=== PATIENT | female | born 1945 | race Caucasian/White ===

== ENCOUNTER → 2016-07-15 | Outpatient (CLI) | payer OTHER ==
[~2016-07-15] MED LIST: CITALOPRAM PO; DICL-201 PO; LEVO175T25 PO; LOVA20TA4 PO; [UNRECOGNIZED DRUG - CODE] PO
== END | disposition home or self-care (01) ==
LOC: C.LABPBG 15:30
PROVIDERS: ATTEND Family Medicine
DX: E03.9 Hypothyroidism, unspecified (principal)

== ENCOUNTER 2016-10-07 22:37 | Emergency (ER) | payer OTHER ==
[~2016-10-07] VITALS: Ht 172.7 cm; Wt 108.3 kg
[2016-10-07 22:45] VITALS: TEMP 36.9; Ht 172.7 cm; Wt 108.3 kg
--- NOTE | 2016-10-07 22:59 | EMERGENCY ROOM VISIT NOTE ---
History Report prepared by Margot: Ji Bush Under the Supervision of: Dr. Carlos Sanchez D.O. 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 She rates her pain a 6/10 in severity. The patient was walking outside when she began to go down a hill. She then could not stop herself from descending the hill. She ran into a flag pole at the bottom and then a deck. She did not lose consciousness. She is currently on Aspirin 81 mg PO daily. She denies any neck pain or dental pain. She currently has facial pain. She does not know when her last Tetanus shot was. 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 A total of ten systems were reviewed and were otherwise negative. Past Medical & Surgical Medical Problems: (1) Hypothyroidism Family History Omitted secondary to age. Social History Smoking Status: Never Smoker Smokeless Tobacco Use: No Drug Use: none Occupation Status: retired Current/Historical Medications Scheduled Diclofenac (Voltaren), 75 MG PO BID Levothyroxine (Levothroid), 0.175 MG PO DAILY Lovastatin (Mevacor), 20 MG PO DHS Triazolam (Halcion *), 0.25 MG PO HS [Citalopram], 40 MG PO ONE IN AM, 1/2 IN PM Allergies Coded Allergies: No Known Allergies (Verified Allergy, Mild, 10/03/07) Physical Exam Vital Signs Date Time Temp Pulse Resp B/P (MAP) Pulse Ox O2 Delivery O2 Flow Rate FiO2 10/08/16 01:15 98 Room Air 10/08/16 01:15 69 18 148/103 100 Room Air 10/08/16 01:02 71 16 198/91 96 Room Air 10/07/16 22:45 36.9 90 20 175/90 96 Room Air Physical Exam GENERAL: Awake, alert, well-appearing, in no distress HENT: Normocephalic. Oropharynx unremarkable. There is a 2 cm laceration on the right maxillary area. There is ecchymosis and obvious contusion with tenderness to the nasal bridge. There is a temporoparietal laceration that is less than 2 cm. EYES: Normal conjunctiva. Sclera non-icteric. NECK: Supple. No nuchal rigidity. FROM. No JVD. No tenderness. RESPIRATORY: Clear to auscultation. CARDIAC: Regular rate, normal rhythm. Extremities warm and well perfused. Pulses equal. ABDOMEN: Soft, non-distended. No tenderness to palpation. No rebound or guarding. No masses. RECTAL: Deferred. MUSCULOSKELETAL: Chest examination reveals no tenderness. The back is symmetrical on inspection without obvious abnormality. There is no CVA tenderness to palpation. No joint edema. LOWER EXTREMITIES: Calves are equal size bilaterally and non-tender. No edema. No discoloration. NEURO: Normal sensorium. No sensory or motor deficits noted. GCS 15. SKIN: No rash or jaundice noted. Medical Decision & Procedures ER Provider Diagnostic Interpretation: X ray results as stated below per my interpretation and radiologist interpretation. Other radiology results as stated below per my review and radiologist interpretation CT HEAD: Small subdural hemorrhage along the falx measuring 3 mm in thickness. No mass effect or midline shift. CT FACIAL: Fracture of the nasal bone with probable nasal septum with associated soft tissue swelling. CT C SPINE: Degenerative changes without definite acute fracture. Age-indeterminate slight irregularity of the anterior C7 superior endplate. Radiologist: Manjula Brunson M.D. Laboratory Results 10/08/16 01:09 Red Blood Count 4.91, Mean Corpuscular Volume 90.0, Mean Corpuscular Hemoglobin 28.7, Mean Corpuscular Hemoglobin Concent 31.9, Mean Platelet Volume 8.3, Neutrophils (%) (Auto) 82.6, Lymphocytes (%) (Auto) 11.4, Monocytes (%) (Auto) 4.6, Eosinophils (%) (Auto) 0.9, Basophils (%) (Auto) 0.2, Neutrophils # (Auto) 13.23, Lymphocytes # (Auto) 1.82, Monocytes # (Auto) 0.74, Eosinophils # (Auto) 0.14, Basophils # (Auto) 0.04 Test 10/08/16 01:09 White Blood Count 16.02 K/uL (4.8-10.8) Red Blood Count 4.91 M/uL (4.2-5.4) Hemoglobin 14.1 g/dL (12.0-16.0) Hematocrit 44.2 % (37-47) Mean Corpuscular Volume 90.0 fL (80-100) Mean Corpuscular Hemoglobin 28.7 pg (25-34) Mean Corpuscular Hemoglobin Concent 31.9 g/dl (32-36) Platelet Count 331 K/uL (130-400) Mean Platelet Volume 8.3 fL (7.4-10.4) Neutrophils (%) (Auto) 82.6 % Lymphocytes (%) (Auto) 11.4 % Monocytes (%) (Auto) 4.6 % Eosinophils (%) (Auto) 0.9 % Basophils (%) (Auto) 0.2 % Neutrophils # (Auto) 13.23 K/uL (1.4-6.5) Lymphocytes # (Auto) 1.82 K/uL (1.2-3.4) Monocytes # (Auto) 0.74 K/uL (0.11-0.59) Eosinophils # (Auto) 0.14 K/uL (0-0.5) Basophils # (Auto) 0.04 K/uL (0-0.2) RDW Standard Deviation 44.7 fL (36.4-46.3) RDW Coefficient of Variation 13.7 % (11.5-14.5) Immature Granulocyte % (Auto) 0.3 % Immature Granulocyte # (Auto) 0.05 K/uL (0.00-0.02) Laboratory results reviewed by me Medications Administered Medications (Trade) Dose Ordered Sig/Brayan Route Start Time Stop Time Status Last Admin Dose Admin Diphtheria/ Pertussis/Tetanus Vacc (Adacel Inj) 0.5 ml ONCE ONCE IM. 10/07/16 23:00 10/07/16 23:01 DC 10/07/16 23:10 0.5 ML ECG Indication: other (Trauma) Rate (beats per minute): 71 Rhythm: sinus rhythm Findings: 1st degree AV block, nonspecific-ST abn (Lateral), other (No ST depressions) ED Course 8: The patient was evaluated in room A4B. A complete history and physical exam was performed. 2300: Ordered Adacel Inj 0.5 ml IM 0106: I spoke with Dr. Ashraf of [facility] at this time. They have accepted the patient for further evaluation and care. The patient will be transferred to their facility. Medical Decision Differential diagnoses include but are not limited to; closed head injury, nasal bone facture, lacerations, and cervical spine injury. Medication Reconciliation: I attest that I have personally reviewed the patient' s current medication list. Blood pressure screening: Patient was found to have normal blood pressure on screening and does not require follow-up Patient on reexamination at 1:20 AM is nonfocal neurologically has a GCS of 15. I discussed the evaluation with the patient at bedside and her family. Patient will be transferred to [facility] for further evaluation due to subdural hemorrhage as well as nasal bone fracture. The case was discussed with Dr Ashraf at [facility]'s emergency department for transfer and has been accepted in transfer at 125am. Consults Time Called: 0100 Consulting Physician: Dr. Ashraf - [facility] ER Returned Call: 010 The patient will be transferred to their facility for further management by Dr. Ashraf. Impression Primary Impression: Subdural hemorrhage Additional Impressions: Nasal fracture Sprain of ligaments of cervical spine Superficial laceration of face Scalp laceration Critical Care I have personally spent greater than 35 minutes of critical care time in the direct management of this patient. This includes bedside care, interpretation of diagnostic studies, and testing, discussion with consultants, patient, and family members, and other required patient management activities. This 35 minutes is in excess of all separately billable procedures. Scribe Attestation The scribe's documentation has been prepared under my direction and personally reviewed by me in its entirety. I confirm that the note above accurately reflects all work, treatment, procedures, and medical decision making performed by me. Departure Information Dispostion Transfer Acute Care Facility Referrals Mitzi Camacho MD (PCP) Patient Instructions My [facility] Problem Qualifiers
[2016-10-07] MEDS ORDERED: DIPHTHERIA/TETANUS/PERTUSSIS 0.5 ML SYR/VIAL IM. ONE (23:00)
[2016-10-08 01:15] VITALS: O2SAT 98
[2016-10-08] MEDS ORDERED: MoRPHine SULFATE 4 MG/ML 1 ML CARP\\VIAL IV STA (01:17)
[2016-10-08] MEDS ORDERED: ONDANSETRON INJ 2 MG/ML 2 ML VIAL IV STA (01:17)
[2016-10-08 01:20] LABS: BASO % 0.2 %; BASO ABS # 0.04 K/uL (0-0.2); COMPLETE YES; EOS % 0.9 %; HEMATOCRIT 44.2 % (37-47); IG% 0.3 %; LYMPH % 11.4 %; LYMPH ABS # 1.82 K/uL (1.2-3.4); MEAN CORPUSCULAR HEMOGLOBIN 28.7 pg (25-34); MEAN CORPUSCULAR HGB CONC 31.9 g/dl (32-36); MEAN PLATELET VOLUME 8.3 fL (7.4-10.4); MONO % 4.6 %; NEUT % 82.6 %; PLATELET COUNT 331 K/uL (130-400); RED BLOOD COUNT 4.91 M/uL (4.2-5.4); WHITE BLOOD COUNT 16.02 K/uL (4.8-10.8)
[2016-10-08 01:29] LABS: INR 0.9 (0.9-1.1); PARTIAL THROMBOPLASTIN RATIO 0.9; PROTHROMBIN TIME (PATIENT) 10.1 SECONDS (9.0-12.0)
[2016-10-08 01:37] LABS: BUN/CREATININE RATIO 14.2 (10-20); CALCIUM 9.1 mg/dl (8.5-10.1); CREATININE 0.81 mg/dl (0.60-1.20); MAGNESIUM 1.8 mg/dl (1.8-2.4)
[2016-10-08 01:48] LABS: THYROID STIMULATING HORMONE 1.34 uIu/ml (0.300-4.500)
[2016-10-08 02:28] VITALS: BP 159/94; PULSE 72; O2SAT 97
--- NOTE | 2016-10-08 06:49 | DIAGNOSTIC IMAGING REPORT ---
CT OF THE HEAD WITHOUT CONTRAST CLINICAL HISTORY: Fall. Posterior head laceration. COMPARISON STUDY: No previous studies for comparison. CT DOSE: 1113.73 mGy.cm TECHNIQUE: Helical axial images of the head were obtained without IV contrast. Automated exposure control was utilized for the study. FINDINGS: Minimal hyperdensity along the falx suggest a tiny subdural hematoma which measures 3 mm in thickness. There is no mass effect. Ventricular system is normal. Basilar cisterns are patent. There are no extra-axial collections. Nasal bone fractures are better depicted on the maxillofacial CT. There is no calvarial fracture. IMPRESSION: 1. Trace acute subdural hemorrhage along the falx. 2. No acute calvarial fracture. 3. Bilateral nasal bone fractures which are better depicted on the maxillofacial CT. Electronically signed by: Bashir Macias M.D. 10/08/2016 6:47 AM Dictated Date/Time: 10/08/2016 6:44 AM
--- NOTE | 2016-10-08 06:52 | DIAGNOSTIC IMAGING REPORT ---
MAXILLOFACIAL CT WITHOUT CONTRAST CLINICAL HISTORY: Fall. Nose laceration. COMPARISON STUDY: None. TECHNIQUE: A maxillofacial CT was performed without IV contrast. Coronal and sagittal reformats were viewed. FINDINGS: There are acute mildly displaced comminuted bilateral nasal bone fractures. Minimally displaced fracture of the bony nasal septum is noted. Alignment of the temporomandibular joints is anatomic. Nasal soft tissue swelling and gas is present There is no retrobulbar hematoma. No additional facial fractures are identified. There are postsurgical findings within the sinuses. IMPRESSION: 1. Acute comminuted, mildly displaced bilateral nasal bone fractures and minimally displaced fracture of the nasal septum. 2. Nasal soft tissue swelling and soft tissue gas. Electronically signed by: Bashir Macias M.D. 10/08/2016 6:50 AM Dictated Date/Time: 10/08/2016 6:44 AM
--- NOTE | 2016-10-08 06:55 | DIAGNOSTIC IMAGING REPORT ---
CT OF THE CERVICAL SPINE WITHOUT CONTRAST CLINICAL HISTORY: Neck pain following fall. COMPARISON STUDY: No previous studies for comparison. TECHNIQUE: Helical axial images of the cervical spine were obtained without IV contrast. Sagittal and coronal reconstructions were viewed. FINDINGS: Alignment of the cervical spine is anatomic. No definite acute fracture is identified. There is slight irregularity with slight loss of height of the superior endplate of C7. This is age indeterminate. Note subluxation is present. There is moderate multilevel facet arthrosis and degenerative disc disease. IMPRESSION: 1. No definite acute cervical spine fracture. 2. Slight age indeterminate irregularity with loss of height of the superior endplate of C7. Electronically signed by: Bashir Macias M.D. 10/08/2016 6:54 AM Dictated Date/Time: 10/08/2016 6:50 AM
== END 2016-10-08 02:29 | disposition short-term general hospital (02) ==
LOC: C.EDB 22:38 → C.EDA 10-08 02:29
DX: S06.5X0A Traumatic subdural hemorrhage without loss of consciousness, initial encounter (principal); S02.2XXA Fracture of nasal bones, initial encounter for closed fracture; S13.9XXA Sprain of joints and ligaments of unspecified parts of neck, initial encounter; S01.01XA Laceration without foreign body of scalp, initial encounter; S01.81XA Laceration without foreign body of other part of head, initial encounter; W22.09XA Striking against other stationary object, initial encounter; Y93.01 Activity, walking, marching and hiking; Y99.8 Other external cause status; Z23 Encounter for immunization; E03.9 Hypothyroidism, unspecified; Z79.82 Long term (current) use of aspirin; Z79.899 Other long term (current) drug therapy

== ENCOUNTER → 2016-10-28 | Outpatient (CLI) | payer OTHER ==
--- NOTE | 2016-10-28 12:00 | DIAGNOSTIC IMAGING REPORT ---
HEAD CT NONCONTRAST CT DOSE: 690.05 mGycm HISTORY: S06.5X9A Subdural hemorrhage, [id number] Subdural hematoma TECHNIQUE: Multiaxial CT images of the head were performed without the use of intravenous contrast. Automated exposure control was utilized for this study. Comparison: Head CT 10/07/2016. Findings: Healing nasal bone fractures. The paranasal sinuses and mastoid air cells are clear. Trace subdural hemorrhage at the falx has almost completely resolved. This measures 1 mm in thickness. No additional sites of intracranial hemorrhage identified. There is no mass, midline shift or acute infarct. Impression: Near complete resolution of the trace subdural hemorrhage at the falx. Electronically signed by: Noel Ward M.D. 10/28/2016 11:59 AM Dictated Date/Time: 10/28/2016 11:55 AM
== END | disposition home or self-care (01) ==
LOC: C.CTS 11:44
PROVIDERS: ATTEND Psychiatry & Neurology Neurology
DX: S06.5X9A Traumatic subdural hemorrhage with loss of consciousness of unspecified duration, initial encounter (principal); X58.XXXA Exposure to other specified factors, initial encounter

== ENCOUNTER → 2016-11-15 | Outpatient (CLI) | payer OTHER ==
[2016-11-15 18:18] LABS: CHOLESTEROL/HDL RATIO 3.3; THYROID STIMULATING HORMONE 1.02 uIu/ml (0.300-4.500)
[2016-11-16 06:06] LABS: ESTIMATED AVERAGE GLUCOSE 126 mg/dl; HA1C FLAG Normal (Normal)
--- NOTE | 2016-11-30 11:07 | CODING QUERY MEDICAL NECESSITY ---
SUPPORTING DIAGNOSIS NEEDED [employer] [facility], A supporting diagnosis is required for the test/procedure performed on this patient in order for us to be reimbursed by the patient's insurance. Please provide a supporting diagnosis for the following test/procedure listed below next to the test name along with your signature. *If there is no additional diagnosis for this patient that would support the following test/procedure please document that below next to the test/procedure. Test(s)/Procedure(s) that require a supporting diagnosis: * [id number] GLYCATED HEMOGLOBIN DIAGNOSIS: DATE OF SERVICE: 11/15/16 Provider Signature: Date: Thank you [facility] Information Management Once completed, please kindly fax back to [phone] For questions please call [phone]
== END | disposition home or self-care (01) ==
LOC: C.LABPBG 14:58
PROVIDERS: ATTEND Family Medicine
DX: E78.5 Hyperlipidemia, unspecified (principal); E03.9 Hypothyroidism, unspecified; R42 Dizziness and giddiness; Y92.099 Unspecified place in other non-institutional residence as the place of occurrence of the external cause

== ENCOUNTER → 2017-01-09 | Outpatient (CLI) | payer OTHER ==
--- NOTE | 2017-01-09 13:43 | DIAGNOSTIC IMAGING REPORT ---
HEAD WITHOUT CONTRAST (CT) CT DOSE: 729.78 mGycm HISTORY: I62.00 Subdural hematoma TECHNIQUE: Multiaxial CT images of the head were performed without the use of intravenous contrast. A dose lowering technique was utilized adhering to the principles of ALARA. Comparison: 10/28/2016 Findings: The paranasal sinuses and mastoid air cells are clear. Improved exam. No significant residual subdural hematoma. Calcifications the interhemispheric fissure chronic. Mild chronic small vessel change of aging. Impression: Study is now negative for acute intracranial abnormality. No significant residual of the previously described subdural hematoma The above report was generated using voice recognition software. It may contain grammatical, syntax or spelling errors. Electronically signed by: Eamon Degroot M.D. 01/09/2017 1:42 PM Dictated Date/Time: 01/09/2017 1:32 PM
== END | disposition home or self-care (01) ==
LOC: C.CTS 13:12
PROVIDERS: ATTEND Psychiatry & Neurology Neurology
DX: I62.00 Nontraumatic subdural hemorrhage, unspecified (principal)

== ENCOUNTER → 2017-12-11 | Outpatient (CLI) | payer OTHER ==
[~2017-12-11] MED LIST changes: +ABL/15 PO; +DULO60CA44 PO; +FESO8TAB PO; +LEVO150T9 PO; +MELO-84 PO; +METO25TA3 PO; +NYST1POW7 TOP; +OMEP40CA41 PO; +OXYC7.5T65 PO; +PHEN-775 PO; +TRIA0.25 PO; +TROS1CAP2 PO
== END | disposition home or self-care (01) ==
LOC: C.LABSPEC 17:09
PROVIDERS: ATTEND Neuromusculoskeletal Medicine & OMM
DX: R39.9 Unspecified symptoms and signs involving the genitourinary system (principal)

== ENCOUNTER → 2017-12-14 | Outpatient (CLI) | payer OTHER ==
[~2017-12-14] MED LIST changes: +KFL500 PO
[2017-12-14 16:59] LABS: BASO % 0.5 %; BASO ABS # 0.04 K/uL (0-0.2); EOS ABS # 0.09 K/uL (0-0.5); HEMATOCRIT 43.2 % (37-47); IG# 0.03 K/uL (0.00-0.02); LYMPH % 29.6 %; LYMPH ABS # 2.59 K/uL (1.2-3.4); MEAN CELL VOLUME 94.9 fL (80-100); MEAN CORPUSCULAR HEMOGLOBIN 30.8 pg (25-34); MEAN CORPUSCULAR HGB CONC 32.4 g/dl (32-36); MEAN PLATELET VOLUME 8.7 fL (7.4-10.4); MONO % 6.2 %; MONO ABS # 0.54 K/uL (0.11-0.59); NEUT % 62.4 %; NEUT ABS # 5.45 K/uL (1.4-6.5); PLATELET COUNT 323 K/uL (130-400); RED CELL DISTRIBUTION WIDTH CV 14.5 % (11.5-14.5); RED CELL DISTRIBUTION WIDTH SD 50.2 fL (36.4-46.3); WHITE BLOOD COUNT 8.74 K/uL (4.8-10.8)
[2017-12-14 17:30] LABS: ALT/SGPT 12 U/L (12-78); BLOOD UREA NITROGEN 13 mg/dl (7-18); CALCIUM 9.2 mg/dl (8.5-10.1); CARBON DIOXIDE 28 mmol/L (21-32); CHOLESTEROL 128 mg/dl (0-200); CREATININE 0.87 mg/dl (0.60-1.20); GLUCOSE 116 mg/dl (70-99); LDL CHOLESTEROL CALCULATED 34 mg/dl; POTASSIUM 4.4 mmol/L (3.5-5.1); SODIUM 135 mmol/L (136-145)
== END | disposition home or self-care (01) ==
LOC: C.LABPBG 15:55
PROVIDERS: ATTEND Family Medicine
DX: E03.9 Hypothyroidism, unspecified (principal); I10 Essential (primary) hypertension; E78.5 Hyperlipidemia, unspecified

== ENCOUNTER 2017-12-18 21:00 | Inpatient (IN) | payer OTHER ==
[~2017-12-18] VITALS: Ht 172.7 cm; Wt 94.2 kg
[~2017-12-18 21:00] MED LIST changes: -ABL/15 PO; -DULO60CA44 PO; -FESO8TAB PO; -KFL500 PO; -LEVO150T9 PO; -MELO-84 PO; -METO25TA3 PO; -NYST1POW7 TOP; -OMEP40CA41 PO; -OXYC7.5T65 PO; -PHEN-775 PO; -TRIA0.25 PO; -TROS1CAP2 PO
[2017-12-18] MEDS ORDERED: ACETAMINOPHEN 500 MG TAB PO STA (21:19)
--- NOTE | 2017-12-18 21:22 | EMERGENCY ROOM VISIT NOTE ---
History Report prepared by Margot: Libby Harden Under the Supervision of: Dr. Percy Gonzalez M.D. First contact with patient: 21:11 Chief Complaint: WEAKNESS Stated Complaint: WEAK CANT STAND History of Present Illness The patient is a 72 year old female who presents to the Emergency Room with complaints of constant L leg weakness beginning today. She notes she fell 4 times today, and hit her head on the tub. Her son states she has cuts to her back and neck. He reports the patient seems to have had slurred speech all day. The patient notes pain in the back of her head as well as her back, hips, and knees. She denies pain in her chest, abdomen, or neck. The son notes he had to help the patient to her feet after the last two falls. The patient notes she felt fine yesterday. She reports she did not eat today. The patient sees Dr. Ann as her PCP. Her son notes the patient had a recent UTI. Source of History: patient Onset: today Position: leg (left) Quality: other (weakness) Timing: constant Associated Symptoms: + headache (back of head), No neck pain, No chest pain , No abdominal pain Note: Associated symptoms: slurred speech, knee pain, hip pain Review of Systems See HPI for pertinent positives and negatives. A total of ten systems were reviewed and were otherwise negative. Past Medical & Surgical Medical Problems: (1) Hypothyroidism Social History Smoking Status: Never Smoker Drug Use: none Marital Status: Occupation Status: retired Current/Historical Medications Scheduled Aripiprazole (Abilify), 15 MG PO DAILY Duloxetine Hcl (Cymbalta), 60 MG PO BID Fesoterodine Fumarate (Toviaz), 1 TAB PO DAILY Levothyroxine Sodium (Levothyroxine Sodium), 1 TAB PO DAILY Lovastatin (Mevacor), 20 MG PO HS Meloxicam (Mobic), 15 MG PO DAILY Metoprolol Succ (Toprol Xl) (Toprol-Xl), 25 MG PO HS Nystatin (Topical) (Nystatin), 1 APPLN TOP TID Omeprazole (Prilosec), 40 MG PO DAILY Oxycodone/Acetaminophen 7.5MG/325MG (Percocet 7.5MG/325MG), 1 TAB PO TID Triazolam (Halcion), 2 TAB PO HS Trospium Chloride (Trospium Chloride Er), 60 MG PO QAM Scheduled PRN Phenazopyridine Hcl (Pyridium), 200 MG PO TID PRN for Pain Allergies Coded Allergies: No Known Allergies (Verified , 12/19/17) Physical Exam Vital Signs Date Time Temp Pulse Resp B/P (MAP) Pulse Ox O2 Delivery O2 Flow Rate FiO2 12/19/17 00:27 77 20 145/68 93 Room Air 12/18/17 23:17 77 18 135/95 95 Room Air 12/18/17 23:16 89 20 135/95 96 Room Air 12/18/17 23:10 78 19 123/111 94 12/18/17 22:20 81 24 12/18/17 22:16 83 12/18/17 22:11 127/67 12/18/17 22:10 93 Room Air 12/18/17 22:10 93 Room Air 12/18/17 21:06 36.4 67 16 127/77 98 Room Air Physical Exam GENERAL: Awake, alert, well-appearing, in no distress HENT: Normocephalic, atraumatic. Oropharynx unremarkable. EYES: Normal conjunctiva. Sclera non-icteric. NECK: Supple. No nuchal rigidity. RESPIRATORY: Clear to auscultation. No wheezes. Normal respiratory effort. CARDIAC: Normal rate. Normal rhythm. Extremities warm and well perfused. GI: Soft, non-distended. No tenderness to palpation. No rebound or guarding. No masses. RECTAL: Deferred. MUSCULOSKELETAL: Atraumatic. Chest examination reveals no tenderness. There is no CVA tenderness to palpation. LOWER EXTREMITIES: Calves are equal size bilaterally and non-tender. No edema. Mild tenderness to bilateral knees & hips NEURO: Normal sensorium. No sensory or motor deficits noted. No facial droop. SKIN: Warm and dry. No rash or jaundice noted. 15cm superficial abrasion on upper back. 2x5cm ecchymosis of L hip Medical Decision & Procedures ER Provider Diagnostic Interpretation: Radiology results as stated below per my review and radiologist interpretation: THORACIC SPINE WITHOUT CLINICAL HISTORY: fall COMPARISON STUDY: No previous studies for comparison. TECHNIQUE: Axial images of the thoracic spine were obtained without IV contrast. Sagittal and coronal reconstructions were viewed. FINDINGS: Mild loss of height of the inferior endplate of T12 is likely chronic. No acute thoracic spine fracture is identified. There is mild multilevel disc space narrowing with moderate anterior osteophytosis. The chest CT will be reported separately. IMPRESSION: 1. No acute thoracic spine fracture or subluxation. 2. Mild loss of height of the inferior endplate of T12 which is likely old. Electronically signed by: Bashir Macias M.D. 12/18/2017 11:16 PM Dictated Date/Time: 12/18/2017 11:14 PM LUMBAR SPINE WITHOUT CLINICAL HISTORY: Fall. COMPARISON STUDY: No previous studies for comparison. TECHNIQUE: Axial images of the lumbar spine were obtained without IV contrast. Sagittal and coronal reconstructions were viewed. FINDINGS: The abdomen and pelvis will be reported separately. No acute lumbar spine fracture is noted. There is 4 mm of anterolisthesis of L4 and L5 due to facet arthrosis. There is moderate to severe multilevel degenerative disc disease and severe multilevel facet arthrosis. Mild loss of height of the inferior endplate of T12 is likely chronic. Sacroiliac joints are intact. IMPRESSION: 1. No acute lumbar spine fracture or subluxation. 2. Grade I anterolisthesis of L4 and L5 likely due to facet arthrosis. 3. Severe multilevel facet arthrosis and moderate multilevel degenerative disc disease. Electronically signed by: Bashir Macias M.D. 12/18/2017 11:26 PM Dictated Date/Time: 12/18/2017 11:24 PM R KNEE 3 VIEWS CLINICAL HISTORY: Right knee pain following fall. COMPARISON: Right knee radiographs October 04, 2007. FINDINGS: Alignment of the total right knee arthroplasty is anatomic. There is no acute fracture. Heterotopic ossification is noted. Spurring of the patella is chronic. There is no joint effusion. IMPRESSION: Status post total right knee arthroplasty. No periprosthetic fracture. No joint effusion. Electronically signed by: Bashir Macias M.D. 12/18/2017 11:04 PM Dictated Date/Time: 12/18/2017 11:03 PM L KNEE 3 VIEWS CLINICAL HISTORY: fall, pain COMPARISON: Left knee radiographs October 04, 2007. FINDINGS: Alignment of the total left knee arthroplasty is anatomic. There is no periprosthetic fracture or joint effusion. Calcific densities posterior to the joint spaces are chronic. IMPRESSION: Status post total left knee arthroplasty. No periprosthetic fracture. No joint effusion. Electronically signed by: Bashir Macias M.D. 12/18/2017 11:05 PM Dictated Date/Time: 12/18/2017 11:05 PM PELVIS/BILATERAL HIP 2 VIEWS CLINICAL HISTORY: fall, pain COMPARISON STUDY: No previous studies for comparison. FINDINGS: Sacroiliac joints and symphysis pubis are intact. There is no acute fracture within the pelvis or hips. There is mild osteoarthritis of both hips. IMPRESSION: No acute fracture within the pelvis or hips. Electronically signed by: Bashir Macias M.D. 12/18/2017 11:27 PM Dictated Date/Time: 12/18/2017 11:[address] OF THE HEAD WITHOUT CONTRAST CLINICAL HISTORY: Fall. COMPARISON STUDY: Head CT January 09, 2017. TECHNIQUE: Helical axial images of the head were obtained without IV contrast. Automated exposure control was utilized for the study. A dose lowering technique was utilized adhering to the principles of ALARA. FINDINGS: No acute intracranial hemorrhage, midline shift or mass effect is present. Ventricular system is stable. Basilar cisterns are patent. There are no extra-axial collections. Castillo-white differentiation is maintained. There is no calvarial fracture. Postoperative findings within the sinuses are noted. Left nasal bone deformity is chronic. IMPRESSION: 1. No acute intracranial findings. 2. No calvarial fracture. Electronically signed by: Bashir Macias M.D. 12/18/2017 10:51 PM Dictated Date/Time: 12/18/2017 10:[address] OF THE CHEST WITHOUT IV CONTRAST CLINICAL HISTORY: Fall. COMPARISON STUDY: Chest radiograph September 13, 2007. CT DOSE: 3486.24 mGy.cm TECHNIQUE: Axial images of the chest were obtained without IV contrast. Images were reviewed in the axial, sagittal, and coronal planes. IV contrast was not administered for this examination. A dose lowering technique was utilized adhering to the principles of ALARA. FINDINGS: No mediastinal hematoma is present. A lobulated 1.6 x 1.1 cm anterior mediastinal nodule is noted. The heart is mildly enlarged. There is no pericardial effusion. Thoracic aorta is suboptimally assessed on this unenhanced exam. No pneumothorax or pleural effusion is present. Groundglass opacities favor atelectasis. Thoracic spine will be reported separately. No acute rib fracture is identified on this exam. IMPRESSION: 1. No acute traumatic findings within the chest. 2. Lobulated 1.6 x 1.1 cm anterior mediastinal soft tissue nodule which is nonspecific but may reflect a small thymoma. Electronically signed by: Bashir Macias M.D. 12/18/2017 11:14 PM Dictated Date/Time: 12/18/2017 11:[address] OF THE CERVICAL SPINE WITHOUT CONTRAST CLINICAL HISTORY: Fall. COMPARISON STUDY: Cervical spine CT October 07, 2016. TECHNIQUE: Helical axial images of the cervical spine were obtained without IV contrast. Sagittal and coronal reconstructions were viewed. A dose lowering technique was utilized adhering to the principles of ALARA. FINDINGS: Craniocervical junction is intact. There is no acute cervical spine fracture. Mild loss of height of the superior endplate of C7 is unchanged since exam of October 07, 2016. There is no prevertebral edema. Facet joints are intact. There is severe multilevel facet arthrosis and moderate multilevel degenerative disc disease of the cervical spine. IMPRESSION: No acute cervical spine fracture or subluxation. Electronically signed by: Bashir Macias M.D. 12/18/2017 10:55 PM Dictated Date/Time: 12/18/2017 10:[address] OF THE ABDOMEN AND PELVIS WITHOUT CONTRAST CLINICAL HISTORY: Fall. COMPARISON STUDY: No previous studies for comparison. TECHNIQUE: Axial images of the abdomen and pelvis were obtained without IV contrast. Images were reviewed in the axial, sagittal, and coronal planes. A dose lowering technique was utilized adhering to the principles of ALARA. FINDINGS: No hemoperitoneum or pneumoperitoneum is present. Evaluation of the solid abdominal viscera is suboptimal on this unenhanced exam. There is no evidence for traumatic injury to the liver, spleen, adrenal glands, kidneys or pancreas. Pancreatic glandular atrophy is noted. There is borderline splenomegaly. A water attenuation 3.2 cm lesion within the left kidney is suboptimally assessed on this unenhanced exam but favors a cyst. There is no evidence for a bowel obstruction. Bladder is moderately distended. A moderate amount stool is noted within the colon. There is no free fluid. No acute pelvic fracture is identified. Lumbar spine CT will be reported separately. IMPRESSION: 1. No acute traumatic findings within the abdomen or pelvis although evaluation compromised given the lack of IV contrast. 2. Mild splenomegaly. 3. Moderate amount of stool within the colon. 4. Moderate distention of the bladder. Electronically signed by: Bashir Macias M.D. 12/18/2017 11:23 PM Dictated Date/Time: 12/18/2017 11:16 PM Laboratory Results 12/18/17 22:20 Red Blood Count 4.07, Mean Corpuscular Volume 92.6, Mean Corpuscular Hemoglobin 31.0, Mean Corpuscular Hemoglobin Concent 33.4, Mean Platelet Volume 8.4, Neutrophils (%) (Auto) 80.0, Lymphocytes (%) (Auto) 12.3, Monocytes (%) (Auto) 6.1, Eosinophils (%) (Auto) 0.9, Basophils (%) (Auto) 0.3, Neutrophils # (Auto) 7.46, Lymphocytes # (Auto) 1.15, Monocytes # (Auto) 0.57, Eosinophils # (Auto) 0.08, Basophils # (Auto) 0.03 12/18/17 22:20 Test 12/18/17 22:20 White Blood Count 9.33 K/uL (4.8-10.8) Red Blood Count 4.07 M/uL (4.2-5.4) Hemoglobin 12.6 g/dL (12.0-16.0) Hematocrit 37.7 % (37-47) Mean Corpuscular Volume 92.6 fL (80-100) Mean Corpuscular Hemoglobin 31.0 pg (25-34) Mean Corpuscular Hemoglobin Concent 33.4 g/dl (32-36) Platelet Count 248 K/uL (130-400) Mean Platelet Volume 8.4 fL (7.4-10.4) Neutrophils (%) (Auto) 80.0 % Lymphocytes (%) (Auto) 12.3 % Monocytes (%) (Auto) 6.1 % Eosinophils (%) (Auto) 0.9 % Basophils (%) (Auto) 0.3 % Neutrophils # (Auto) 7.46 K/uL (1.4-6.5) Lymphocytes # (Auto) 1.15 K/uL (1.2-3.4) Monocytes # (Auto) 0.57 K/uL (0.11-0.59) Eosinophils # (Auto) 0.08 K/uL (0-0.5) Basophils # (Auto) 0.03 K/uL (0-0.2) RDW Standard Deviation 47.4 fL (36.4-46.3) RDW Coefficient of Variation 14.1 % (11.5-14.5) Immature Granulocyte % (Auto) 0.4 % Immature Granulocyte # (Auto) 0.04 K/uL (0.00-0.02) Prothrombin Time 10.0 SECONDS (9.0-12.0) Prothromb Time International Ratio 1.0 (0.9-1.1) Activated Partial Thromboplast Time 27.1 SECONDS (21.0-31.0) Partial Thromboplastin Ratio 1.0 Anion Gap 8.0 mmol/L (3-11) Est Creatinine Clear Calc Drug Dose 26.4 ml/min Estimated GFR () 23.6 Estimated GFR (Non- 20.4 BUN/Creatinine Ratio 13.2 (10-20) Bedside Glucose 127 mg/dl (70-90) Calcium Level 8.4 mg/dl (8.5-10.1) Magnesium Level 2.1 mg/dl (1.8-2.4) Total Bilirubin 0.5 mg/dl (0.2-1) Direct Bilirubin 0.1 mg/dl (0-0.2) Aspartate Amino Transf (AST/SGOT) 21 U/L (15-37) Alanine Aminotransferase (ALT/SGPT) 11 U/L (12-78) Alkaline Phosphatase 104 U/L (45-117) Total Creatine Kinase 282 U/L (26-192) Troponin I 1.270 ng/ml (0-0.045) Total Protein 7.2 gm/dl (6.4-8.2) Albumin 2.7 gm/dl (3.4-5.0) Thyroid Stimulating Hormone (TSH) 1.330 uIu/ml (0.300-4.500) Chemistry Specimen Hemolysis Laboratory results reviewed by me Medications Administered Medications (Trade) Dose Ordered Sig/Brayan Route Start Time Stop Time Status Last Admin Dose Admin Acetaminophen (Tylenol Tab) 1,000 mg NOW STAT PO 12/18/17 21:19 12/18/17 21:22 DC 12/18/17 22:16 1,000 MG Sodium Chloride 1,000 ml @ 999 mls/hr Q1H1M ONCE IV 12/18/17 22:57 12/18/17 23:57 DC 12/18/17 23:21 999 MLS/HR Aspirin (Aspirin Chew) 324 mg NOW STAT PO 12/18/17 23:22 12/18/17 23:23 DC 12/18/17 23:27 324 MG ECG Per My Interpretation Indication: weakness Rate (beats per minute): 77 Rhythm: normal sinus Findings: 1st degree AV block, T-wave inversion (1 & AVL), other (no ST elevation. normal axis lead. ) Comparison ECG Date: 10/08/16 Change: no significant change ED Course 2117: The patient was evaluated in room B6. A complete history and physical exam was performed. 2118: Ordered Tylenol Tab 1000 mg PO. 2256: Ordered Sodium Chloride 1000 ml @ 999 mls/hr IV. 2299: I reevaluated and updated the patient. 2321: Ordered Aspirin 324 mg PO. 2356: Paged [facility] hospitalist. 0030: Patient was signed out to Dr. Whitman at the change of shift pending admission to [facility] hospitalist service. Medical Decision Etiologies such as fracture, dislocation, intra-abdominal, pneumothorax, intrathoracic , intracranial, neurologic, as well as other traumatic pathologies were entertained. Patient presents today after several falls. Complaining of hip pain. Denies loss of consciousness. Not on blood thinners or aspirin. States her left leg gave out and she fell approximately 4 times and did strike her head on the tub today. Complaining of some back pain bilateral knee and hip pain. Bilateral knee replacements. No use of blood thinners. Feeling generally weak. Recovering from UTI currently. Benign abdomen. No chest wall tenderness. 15 cm linear abrasion across the upper back that evidence of foreign body and to superficial for closure. Bleeding is controlled here. CT of the head spine and thorax completed. X-rays of the knees and hips completed. No acute fractures visualized here. Acute kidney injury is notable given some fluid rehydration. Troponin is also positive. Given aspirin. No chest pain complaint. Some dehydration could be feeling this is probably a demand ischemia. No acute EKG changes. Will admit for serial troponins and rehydration and resolution of weakness. UA pending. No acute traumatic injury noted. Family updated. Hospitalist paged for admission. Head Trauma GCS Score: 15 Medication Reconcilliation Current Medication List: was personally reviewed by me Blood Pressure Screening Patient's blood pressure: Normal blood pressure Blood pressure disposition: Did not require urgent referral Consults Time Called: [id number] Consulting Physician: [facility] hospitalist Impression Primary Impression: Weakness Additional Impressions: NSTEMI (non-ST elevated myocardial infarction) KEZIA (acute kidney injury) Fall Scribe Attestation The scribe's documentation has been prepared under my direction and personally reviewed by me in its entirety. I confirm that the note above accurately reflects all work, treatment, procedures, and medical decision making performed by me. Departure Information Dispostion Being Evaluated By Hospitalist Referrals Mitzi Camacho MD (PCP) Patient Instructions My [facility] Problem Qualifiers Additional Impressions: Fall Encounter type: initial encounter Qualified Codes: W19.XXXA - Unspecified fall, initial encounter
[2017-12-18 22:32] LABS: BASO % 0.3 %; BASO ABS # 0.03 K/uL (0-0.2); EOS % 0.9 %; EOS ABS # 0.08 K/uL (0-0.5); HEMATOCRIT 37.7 % (37-47); HEMOGLOBIN 12.6 g/dL (12.0-16.0); IG# 0.04 K/uL (0.00-0.02); LYMPH % 12.3 %; LYMPH ABS # 1.15 K/uL (1.2-3.4); MEAN CELL VOLUME 92.6 fL (80-100); MEAN CORPUSCULAR HGB CONC 33.4 g/dl (32-36); MEAN PLATELET VOLUME 8.4 fL (7.4-10.4); MONO % 6.1 %; MONO ABS # 0.57 K/uL (0.11-0.59); NEUT ABS # 7.46 K/uL (1.4-6.5); PLATELET COUNT 248 K/uL (130-400); RED CELL DISTRIBUTION WIDTH CV 14.1 % (11.5-14.5); RED CELL DISTRIBUTION WIDTH SD 47.4 fL (36.4-46.3); WHITE BLOOD COUNT 9.33 K/uL (4.8-10.8)
[2017-12-18 22:48] LABS: PTT PATIENT 27.1 SECONDS (21.0-31.0)
[2017-12-18 22:52] LABS: ALBUMIN 2.7 gm/dl (3.4-5.0); CALCIUM 8.4 mg/dl (8.5-10.1); CREATININE 2.3 mg/dl (0.60-1.20); POTASSIUM 4.3 mmol/L (3.5-5.1)
--- NOTE | 2017-12-18 22:52 | DIAGNOSTIC IMAGING REPORT ---
CT OF THE HEAD WITHOUT CONTRAST CLINICAL HISTORY: Fall. COMPARISON STUDY: Head CT January 09, 2017. TECHNIQUE: Helical axial images of the head were obtained without IV contrast. Automated exposure control was utilized for the study. A dose lowering technique was utilized adhering to the principles of ALARA. FINDINGS: No acute intracranial hemorrhage, midline shift or mass effect is present. Ventricular system is stable. Basilar cisterns are patent. There are no extra-axial collections. Castillo-white differentiation is maintained. There is no calvarial fracture. Postoperative findings within the sinuses are noted. Left nasal bone deformity is chronic. IMPRESSION: 1. No acute intracranial findings. 2. No calvarial fracture. Electronically signed by: Bashir Macias M.D. 12/18/2017 10:51 PM Dictated Date/Time: 12/18/2017 10:49 PM
--- NOTE | 2017-12-18 22:56 | DIAGNOSTIC IMAGING REPORT ---
CT OF THE CERVICAL SPINE WITHOUT CONTRAST CLINICAL HISTORY: Fall. COMPARISON STUDY: Cervical spine CT October 07, 2016. TECHNIQUE: Helical axial images of the cervical spine were obtained without IV contrast. Sagittal and coronal reconstructions were viewed. A dose lowering technique was utilized adhering to the principles of ALARA. FINDINGS: Craniocervical junction is intact. There is no acute cervical spine fracture. Mild loss of height of the superior endplate of C7 is unchanged since exam of October 07, 2016. There is no prevertebral edema. Facet joints are intact. There is severe multilevel facet arthrosis and moderate multilevel degenerative disc disease of the cervical spine. IMPRESSION: No acute cervical spine fracture or subluxation. Electronically signed by: Bashir Macias M.D. 12/18/2017 10:55 PM Dictated Date/Time: 12/18/2017 10:51 PM
[2017-12-18] MEDS ORDERED: SODIUM CHLORIDE 0.9% 1000ML 1,000 ML IV ONE (22:57)
[2017-12-18 23:03] LABS: TOTAL PROTEIN 7.2 gm/dl (6.4-8.2)
--- NOTE | 2017-12-18 23:06 | DIAGNOSTIC IMAGING REPORT ---
R KNEE 3 VIEWS CLINICAL HISTORY: Right knee pain following fall. COMPARISON: Right knee radiographs October 04, 2007. FINDINGS: Alignment of the total right knee arthroplasty is anatomic. There is no acute fracture. Heterotopic ossification is noted. Spurring of the patella is chronic. There is no joint effusion. IMPRESSION: Status post total right knee arthroplasty. No periprosthetic fracture. No joint effusion. Electronically signed by: Bashir Macias M.D. 12/18/2017 11:04 PM Dictated Date/Time: 12/18/2017 11:03 PM
--- NOTE | 2017-12-18 23:07 | DIAGNOSTIC IMAGING REPORT ---
L KNEE 3 VIEWS CLINICAL HISTORY: fall, pain COMPARISON: Left knee radiographs October 04, 2007. FINDINGS: Alignment of the total left knee arthroplasty is anatomic. There is no periprosthetic fracture or joint effusion. Calcific densities posterior to the joint spaces are chronic. IMPRESSION: Status post total left knee arthroplasty. No periprosthetic fracture. No joint effusion. Electronically signed by: Bashir Macias M.D. 12/18/2017 11:05 PM Dictated Date/Time: 12/18/2017 11:05 PM
--- NOTE | 2017-12-18 23:15 | DIAGNOSTIC IMAGING REPORT ---
CT OF THE CHEST WITHOUT IV CONTRAST CLINICAL HISTORY: Fall. COMPARISON STUDY: Chest radiograph September 13, 2007. CT DOSE: 3486.24 mGy.cm TECHNIQUE: Axial images of the chest were obtained without IV contrast. Images were reviewed in the axial, sagittal, and coronal planes. IV contrast was not administered for this examination. A dose lowering technique was utilized adhering to the principles of ALARA. FINDINGS: No mediastinal hematoma is present. A lobulated 1.6 x 1.1 cm anterior mediastinal nodule is noted. The heart is mildly enlarged. There is no pericardial effusion. Thoracic aorta is suboptimally assessed on this unenhanced exam. No pneumothorax or pleural effusion is present. Groundglass opacities favor atelectasis. Thoracic spine will be reported separately. No acute rib fracture is identified on this exam. IMPRESSION: 1. No acute traumatic findings within the chest. 2. Lobulated 1.6 x 1.1 cm anterior mediastinal soft tissue nodule which is nonspecific but may reflect a small thymoma. Electronically signed by: Bashir Macias M.D. 12/18/2017 11:14 PM Dictated Date/Time: 12/18/2017 11:06 PM
--- NOTE | 2017-12-18 23:17 | DIAGNOSTIC IMAGING REPORT ---
THORACIC SPINE WITHOUT CLINICAL HISTORY: fall COMPARISON STUDY: No previous studies for comparison. TECHNIQUE: Axial images of the thoracic spine were obtained without IV contrast. Sagittal and coronal reconstructions were viewed. FINDINGS: Mild loss of height of the inferior endplate of T12 is likely chronic. No acute thoracic spine fracture is identified. There is mild multilevel disc space narrowing with moderate anterior osteophytosis. The chest CT will be reported separately. IMPRESSION: 1. No acute thoracic spine fracture or subluxation. 2. Mild loss of height of the inferior endplate of T12 which is likely old. Electronically signed by: Bashir Macias M.D. 12/18/2017 11:16 PM Dictated Date/Time: 12/18/2017 11:14 PM
[2017-12-18] MEDS ORDERED: ASPIRIN 324 MG CHEW PO STA (23:22)
--- NOTE | 2017-12-18 23:25 | DIAGNOSTIC IMAGING REPORT ---
CT OF THE ABDOMEN AND PELVIS WITHOUT CONTRAST CLINICAL HISTORY: Fall. COMPARISON STUDY: No previous studies for comparison. TECHNIQUE: Axial images of the abdomen and pelvis were obtained without IV contrast. Images were reviewed in the axial, sagittal, and coronal planes. A dose lowering technique was utilized adhering to the principles of ALARA. FINDINGS: No hemoperitoneum or pneumoperitoneum is present. Evaluation of the solid abdominal viscera is suboptimal on this unenhanced exam. There is no evidence for traumatic injury to the liver, spleen, adrenal glands, kidneys or pancreas. Pancreatic glandular atrophy is noted. There is borderline splenomegaly. A water attenuation 3.2 cm lesion within the left kidney is suboptimally assessed on this unenhanced exam but favors a cyst. There is no evidence for a bowel obstruction. Bladder is moderately distended. A moderate amount stool is noted within the colon. There is no free fluid. No acute pelvic fracture is identified. Lumbar spine CT will be reported separately. IMPRESSION: 1. No acute traumatic findings within the abdomen or pelvis although evaluation compromised given the lack of IV contrast. 2. Mild splenomegaly. 3. Moderate amount of stool within the colon. 4. Moderate distention of the bladder. Electronically signed by: Bashir Macias M.D. 12/18/2017 11:23 PM Dictated Date/Time: 12/18/2017 11:16 PM
--- NOTE | 2017-12-18 23:27 | DIAGNOSTIC IMAGING REPORT ---
LUMBAR SPINE WITHOUT CLINICAL HISTORY: Fall. COMPARISON STUDY: No previous studies for comparison. TECHNIQUE: Axial images of the lumbar spine were obtained without IV contrast. Sagittal and coronal reconstructions were viewed. FINDINGS: The abdomen and pelvis will be reported separately. No acute lumbar spine fracture is noted. There is 4 mm of anterolisthesis of L4 and L5 due to facet arthrosis. There is moderate to severe multilevel degenerative disc disease and severe multilevel facet arthrosis. Mild loss of height of the inferior endplate of T12 is likely chronic. Sacroiliac joints are intact. IMPRESSION: 1. No acute lumbar spine fracture or subluxation. 2. Grade I anterolisthesis of L4 and L5 likely due to facet arthrosis. 3. Severe multilevel facet arthrosis and moderate multilevel degenerative disc disease. Electronically signed by: Bashir Macias M.D. 12/18/2017 11:26 PM Dictated Date/Time: 12/18/2017 11:24 PM
--- NOTE | 2017-12-18 23:28 | DIAGNOSTIC IMAGING REPORT ---
PELVIS/BILATERAL HIP 2 VIEWS CLINICAL HISTORY: fall, pain COMPARISON STUDY: No previous studies for comparison. FINDINGS: Sacroiliac joints and symphysis pubis are intact. There is no acute fracture within the pelvis or hips. There is mild osteoarthritis of both hips. IMPRESSION: No acute fracture within the pelvis or hips. Electronically signed by: Bahsir Macias M.D. 12/18/2017 11:27 PM Dictated Date/Time: 12/18/2017 11:26 PM
[2017-12-18] MEDS ORDERED: FESO8TAB PO (23:58)
[2017-12-18] MEDS ORDERED: TRIA0.25 PO (23:58)
[2017-12-18] MEDS ORDERED: MELO-84 PO (23:59)
[2017-12-18] MEDS ORDERED: DULO60CA44 PO (23:59)
[2017-12-18] MEDS ORDERED: LEVO150T9 PO (23:59)
[2017-12-18] MEDS ORDERED: METO25TA3 PO (23:59)
[2017-12-18] MEDS ORDERED: OMEP40CA41 PO (23:59)
[2017-12-19] VITALS (8 sets, daily range): BP systolic 111–175; BP diastolic 58–93; PULSE 67–86; TEMP 36.4–37.1; O2SAT 91–96; Ht 172.7 cm; Wt 94.2 kg
[2017-12-19] MEDS ORDERED: TROS1CAP2 PO
[2017-12-19] MEDS ORDERED: ABL/15 PO
[2017-12-19] MEDS ORDERED: NYST1POW7 TOP (00:02)
[2017-12-19] MEDS ORDERED: OXYC7.5T65 PO (00:02)
[2017-12-19] MEDS ORDERED: PHEN-775 PO (00:02)
--- NOTE | 2017-12-19 02:19 | History and Physical ---
History & Physical Date & Time of Service: Dec 19, 2017 at 01:54 Chief Complaint: Weak Cant Stand Primary Care Physician: Mitzi Camacho MD History of Present Illness Source: patient, family Patient is a 72 year old female with a past medical history of anxiety, depression, hypothyroidism, hypertension, in multiple falls that presents with confusion and a fall at 1:30 PM. The patient was at home in the bathroom when she fell at approximately 1:30 PM and hit the back of her head on the bathtub. The patient states she became lightheaded and dizzy which caused her to fall. She was unable to get up because of upper body weakness and had to have her help her up off the floor. Throughout the rest of the afternoon into the evening the patient appeared confused and was not answering questions appropriately. She also appeared more fatigued and weak compared to her baseline. The patient was recently treated for a urinary tract infection that grew E. Coli resistant to multiple antibiotics. She was initially treated with Cipro by her PCP but switched to Macrobid after her cultures came back. The patient states that her symptoms which initially included pressure and dysuria never resolved after treatment with antibiotics. She denies any recent fevers, chills, nausea, vomiting, or any other acute complaints. Past Medical/Surgical History Medical Problems: (1) Altered mental status (2) Hypothyroidism (3) Nasal fracture (4) Scalp laceration (5) Sprain of ligaments of cervical spine (6) Subdural hemorrhage (7) Superficial laceration of face (8) UTI (urinary tract infection) Family History Noncontributory Social History Smoking Status: Never Smoker Smokeless Tobacco Use: No Alcohol Use: none Drug Use: none Marital Status: Occupational Status: retired Immunizations History of Influenza Vaccine: No History of Tetanus Vaccine?: Yes History of Pneumococcal: No History of Hepatitis B Vaccine: Yes Allergies Coded Allergies: No Known Allergies (Verified , 12/19/17) Home Medications Scheduled Aripiprazole (Abilify), 15 MG PO DAILY Duloxetine Hcl (Cymbalta), 60 MG PO BID Fesoterodine Fumarate (Toviaz), 1 TAB PO DAILY Levothyroxine Sodium (Levothyroxine Sodium), 1 TAB PO DAILY Lovastatin (Mevacor), 20 MG PO HS Meloxicam (Mobic), 15 MG PO DAILY Metoprolol Succ (Toprol Xl) (Toprol-Xl), 25 MG PO HS Nystatin (Topical) (Nystatin), 1 APPLN TOP TID Omeprazole (Prilosec), 40 MG PO DAILY Oxycodone/Acetaminophen 7.5MG/325MG (Percocet 7.5MG/325MG), 1 TAB PO TID Triazolam (Halcion), 2 TAB PO HS Trospium Chloride (Trospium Chloride Er), 60 MG PO QAM Scheduled PRN Phenazopyridine Hcl (Pyridium), 200 MG PO TID PRN for Pain Review of Systems Constitutional: + weakness, + fatigue, No fever, No chills, No sweats Respiratory: No cough, No sputum, No wheezing, No shortness of breath, No dyspnea on exertion Cardiovascular: No chest pain, No palpitations Abdomen: No pain, No nausea, No vomiting, No diarrhea, No constipation Musculoskeletal: + joint pain (Neck pain), No calf pain Genitourinary - Female: + dysuria, + urinary frequency Psychiatric: + depression symptoms, + anxiety Endocrine: + fatigue Physical Exam Vital Signs Date Time Temp Pulse Resp B/P (MAP) Pulse Ox O2 Delivery O2 Flow Rate FiO2 12/19/17 01:38 74 18 138/67 98 Room Air 12/19/17 00:27 77 20 145/68 93 Room Air 12/18/17 23:17 77 18 135/95 95 Room Air 12/18/17 23:16 89 20 135/95 96 Room Air 12/18/17 23:10 78 19 123/111 94 12/18/17 22:20 81 24 12/18/17 22:16 83 12/18/17 22:11 127/67 12/18/17 22:10 93 Room Air 12/18/17 22:10 93 Room Air 12/18/17 21:06 36.4 67 16 127/77 98 Room Air General Appearance: WD/WN, no apparent distress, + obese, + pertinent finding ( Drowsy) Head: normocephalic Eyes: normal inspection, sclerae normal Neck: supple, no carotid bruits Respiratory/Chest: chest non-tender, lungs clear, normal breath sounds, no respiratory distress, no accessory muscle use Cardiovascular: regular rate, rhythm, no edema, no gallop, no murmur Abdomen/GI: normal bowel sounds, non tender, soft, + pertinent finding ( suprapubic pressure) Back: no muscle spasm, + pertinent finding (bilateral flank discomfort) Extremities/Musculoskelatal: normal inspection, no calf tenderness, no pedal edema, + pertinent finding (Large abrasion over interscapular region of back, Hematoma over left hip) Neurologic/Psych: painter helper sign II-XII nml as tested, no motor/sensory deficits, alert, oriented x 3 Skin: no rash Diagnostics Laboratory Results Results Past 24 Hours Test 12/18/17 22:20 Range/Units White Blood Count 9.33 4.8-10.8 K/uL Red Blood Count 4.07 4.2-5.4 M/uL Hemoglobin 12.6 12.0-16.0 g/dL Hematocrit 37.7 37-47 % Mean Corpuscular Volume 92.6 80-100 fL Mean Corpuscular Hemoglobin 31.0 25-34 pg Mean Corpuscular Hemoglobin Concent 33.4 32-36 g/dl Platelet Count 248 130-400 K/uL Mean Platelet Volume 8.4 7.4-10.4 fL Neutrophils (%) (Auto) 80.0 % Lymphocytes (%) (Auto) 12.3 % Monocytes (%) (Auto) 6.1 % Eosinophils (%) (Auto) 0.9 % Basophils (%) (Auto) 0.3 % Neutrophils # (Auto) 7.46 1.4-6.5 K/uL Lymphocytes # (Auto) 1.15 1.2-3.4 K/uL Monocytes # (Auto) 0.57 0.11-0.59 K/uL Eosinophils # (Auto) 0.08 0-0.5 K/uL Basophils # (Auto) 0.03 0-0.2 K/uL RDW Standard Deviation 47.4 36.4-46.3 fL RDW Coefficient of Variation 14.1 11.5-14.5 % Immature Granulocyte % (Auto) 0.4 % Immature Granulocyte # (Auto) 0.04 0.00-0.02 K/uL Prothrombin Time 10.0 9.0-12.0 SECONDS Prothromb Time International Ratio 1.0 0.9-1.1 Activated Partial Thromboplast Time 27.1 21.0-31.0 SECONDS Partial Thromboplastin Ratio 1.0 Sodium Level 135 136-145 mmol/L Potassium Level 4.3 3.5-5.1 mmol/L Chloride Level 101 98-107 mmol/L Carbon Dioxide Level 26 21-32 mmol/L Anion Gap 8.0 3-11 mmol/L Blood Urea Nitrogen 30 7-18 mg/dl Creatinine 2.30 0.60-1.20 mg/dl Est Creatinine Clear Calc Drug Dose 26.4 ml/min Estimated GFR () 23.6 Estimated GFR (Non- 20.4 BUN/Creatinine Ratio 13.2 10-20 Bedside Glucose 127 70-90 mg/dl Random Glucose 119 70-99 mg/dl Calcium Level 8.4 8.5-10.1 mg/dl Magnesium Level 2.1 1.8-2.4 mg/dl Total Bilirubin 0.5 0.2-1 mg/dl Direct Bilirubin 0.1 0-0.2 mg/dl Aspartate Amino Transf (AST/SGOT) 21 15-37 U/L Alanine Aminotransferase (ALT/SGPT) 11 12-78 U/L Alkaline Phosphatase 104 45-117 U/L Total Creatine Kinase 282 26-192 U/L Troponin I 1.270 0-0.045 ng/ml Total Protein 7.2 6.4-8.2 gm/dl Albumin 2.7 3.4-5.0 gm/dl Thyroid Stimulating Hormone (TSH) 1.330 0.300-4.500 uIu/ml Chemistry Specimen Hemolysis Impression Assessment and Plan Patient is a 72 year old female with a past medical history of anxiety, depression, hypothyroidism, hypertension, in multiple falls that presents with confusion and a fall at 1:30 PM Altered Mental Status s/p Fall - Most likely secondary to UTI with failure of outpatient therapy - UA and Urine Culture pending - Rocephin 1gm daily --> E.Coli sensitive to Rocephin on previous Urine Culture - IV Fluid - CT Head: No intracranial abnormalities - Admit Telemetry KEZIA - Most likely dehydration in the setting of AMS and UTI - IV NS @ 125 mls/hr - Baseline Cr 0.8, 2.8 on current BMP - Daily BMP - Monitor I/O Elevated Troponin - Trop 1.27 - EKG; Rate 77, T wave inversions in inferior leads - Trend Troponins q6h - Monitor overnight on Telemetry Hypertension - Continue home metoprolol Psych Disorders - Continue home Abilify, Cymbalta Hypothyroidism - Continue home synthroid GERD - Protonix DVT -SCD Code Status - Full Resuscitation Attending addendum: I have physically seen this patient, have supervised the medical residents activities, and agree with the H&P unless as otherwise noted. Assessment and Plan: Altered mental status/metabolic encephalopathy/dehydration/recent fall-- CT of head negative for acute event. No need for MRI. History of ceftriaxone sensitive E. coli UTI-start ceftriaxone 1 g IV daily. Follow urine culture and sensitivity. NSS at 125 ML's per hour. Repeat laboratories in a.m. Elevated troponin 1.27/progressive T-wave inversions in inferior leads compared to previous/hypertension-- The patient will be admitted to telemetry for serial cardiac enzymes, serial EKG's, cardiac rhythm monitoring and a 2-D echocardiogram with Dopplers. Continue metoprolol. Consult cardiology. Psychiatry-- Continue Abilify and Cymbalta. Remainder of orders and notations as above. Advanced Directives Existing Advance Directive: No Existing Living Will: No Existing Power of Leaf Size Picker: No Resuscitation Status Full Code VTE Prophylaxis Will order VTE Prophylaxis: Yes Social Service Consult None Apply Resident Tracking Resident Involvement: Resident Care Provided Care Provided: Adult Hospital Medicine
[2017-12-19] MEDS: SODIUM CHLORIDE 0.9% 1000ML 1,000 ML IV SCH ×3 (04:20→18:17)
[2017-12-19] MEDS: CEFTRIAXONE SOD INJ 1 GM in DEXTROSE 5% ADD-VANTAGE 50ML 50 ML IV SCH (04:21)
[2017-12-19] MEDS: LEVOTHYROXINE 150 MCG TAB PO SCH (05:14)
[2017-12-19 05:43] LABS: BASO % 0.5 %; BASO ABS # 0.03 K/uL (0-0.2); EOS % 2.2 %; EOS ABS # 0.14 K/uL (0-0.5); HEMATOCRIT 36.2 % (37-47); HEMOGLOBIN 12.2 g/dL (12.0-16.0); LYMPH % 24.3 %; LYMPH ABS # 1.53 K/uL (1.2-3.4); MEAN CELL VOLUME 92.8 fL (80-100); MEAN CORPUSCULAR HEMOGLOBIN 31.3 pg (25-34); MEAN CORPUSCULAR HGB CONC 33.7 g/dl (32-36); MEAN PLATELET VOLUME 8.3 fL (7.4-10.4); MONO % 5.9 %; MONO ABS # 0.37 K/uL (0.11-0.59); NEUT % 67.1 %; NEUT ABS # 4.22 K/uL (1.4-6.5); PLATELET COUNT 255 K/uL (130-400); RED CELL DISTRIBUTION WIDTH CV 14.1 % (11.5-14.5); RED CELL DISTRIBUTION WIDTH SD 47.5 fL (36.4-46.3); WHITE BLOOD COUNT 6.29 K/uL (4.8-10.8)
[2017-12-19 06:24] LABS: CALCIUM 8.6 mg/dl (8.5-10.1); CREATININE 1.95 mg/dl (0.60-1.20); POTASSIUM 4.5 mmol/L (3.5-5.1)
[2017-12-19] MEDS: DULOXETINE HCL 60 MG CAP PO SCH ×2 (08:02→21:19)
[2017-12-19] MEDS: ARIPIprazole TAB 15 MG TAB PO SCH (08:02)
[2017-12-19] MEDS ORDERED: OXYCODONE/ACETAMINOPHEN 7.5-325 TAB PO SCH (09:00)
[2017-12-19] MEDS ORDERED: OXYCODONE/ACETAMINOPHEN 7.5-325 TAB PO PRN (09:00)
[2017-12-19] MEDS ORDERED: OXYCODONE/ACETAMINOPHEN 7.5-325 TAB PO ONE (09:14)
[2017-12-19] MEDS: PANTOprazole INJ 40 MG in SYRINGE 0 ML IV SCH (10:32)
[2017-12-19] MEDS: OXYCODONE/ACETAMINOPHEN 7.5-325 TAB PO SCH ×2 (13:55→21:22)
--- NOTE | 2017-12-19 18:42 | Family Medicine Progress Note ---
Progress Note Date of Service Dec 19, 2017. Subjective Pt evaluation today including: conversation w/ patient, physical exam, chart review, lab review, review of studies Pain: 5/10, burning sensation when she urinates PO Intake: OK Voiding: voiding difficulty (able to urinate, but has burning pain and increased urge/frequency) Mrs. Fong is a 72yo F with a recent UTI resistant E. coli treated with Macrobid who is admitted for confusion and a fall. She reports she just completed a course of antibiotics, her last dose of macrobid was yesterday. She is having burning pain when she urinates. She has tenderness in her low central abdomen. She has increased urinary frequency and urge. She has some dribbling incontinence. Her appetite is decreased. She feels a little weak, but denies confusion. 4-5/10 belly pain. She had a bowel movement today, denies diarrhea/ constipation. She would like something fo rthe pain when she urinates. No other questions or concerns today. Constitutional: + weakness, + fatigue, No fever, No chills, No sweats Eyes: No worsening of vision Respiratory: No cough, No sputum, No wheezing, No shortness of breath, No dyspnea on exertion, No dyspnea at rest Cardiovascular: No chest pain, No palpitations Abdomen: + pain, No nausea, No vomiting, No diarrhea, No constipation, No GI bleeding Female : + dysuria, + urinary frequency, + hematuria (At previous hospitalization after having a cath. Persisted for 11 days but stopped several days ago.), + incontinence Neurologic: + weakness, + balance problems, No numbness/tingling, No vertigo Endo: + fatigue Skin: No rash, No new/changing skin lesions Medications Current Inpatient Medications Medications (Trade) Dose Ordered Sig/Brayan Route Start Time Stop Time Status Last Admin Dose Admin Ceftriaxone Sodium 1 gm/ Dextrose 50 ml @ 100 mls/hr Q24H IV 12/19/17 04:00 12/24/17 01:59 12/19/17 04:21 100 MLS/HR Sodium Chloride 1,000 ml @ 125 mls/hr Q8H IV 12/19/17 02:00 01/18/18 01:59 12/19/17 18:17 125 MLS/HR Aripiprazole (Abilify Tab) 15 mg DAILY PO 12/19/17 09:00 01/18/18 08:59 12/19/17 08:02 15 MG Duloxetine HCl (Cymbalta Cap) 60 mg BID PO 12/19/17 09:00 01/18/18 08:59 12/19/17 08:02 60 MG Levothyroxine Sodium (Synthroid Tab) 150 mcg DAILYBB PO 12/19/17 06:00 01/18/18 05:59 12/19/17 05:14 150 MCG Lovastatin (Mevacor Tab) 20 mg HS PO 12/19/17 21:00 01/18/18 20:59 Metoprolol Succinate (Toprol Xl Tab) 25 mg HS PO 12/19/17 21:00 01/18/18 20:59 Pantoprazole Sodium 40 mg/ Syringe 10 ml @ 5 mls/min DAILY@11 IV 12/19/17 11:00 01/18/18 10:59 12/19/17 10:32 5 MLS/MIN Lorazepam (Ativan Tab) 0.5 mg HSZ SL 12/19/17 22:00 01/18/18 21:59 Oxycodone/ Acetaminophen (Percocet 7.5-325MG Tab) 1 tab TID PO 12/19/17 14:00 01/02/18 08:59 12/19/17 13:55 1 TAB Objective Vital Signs Date Time Temp Pulse Resp B/P (MAP) Pulse Ox O2 Delivery O2 Flow Rate FiO2 12/19/17 16:00 91 Room Air 12/19/17 15:17 37.1 81 15 111/67 (82) 91 Room Air 12/19/17 11:44 37.1 86 17 123/58 (79) 94 Room Air 12/19/17 08:10 Room Air 12/19/17 06:35 36.7 76 18 153/93 (113) 94 Room Air 12/19/17 03:13 36.4 74 18 175/82 96 Room Air 12/19/17 03:00 36.4 74 18 175/82 (113) 96 Room Air 12/19/17 03:00 96 Room Air 12/19/17 02:16 68 20 167/79 98 12/19/17 01:38 74 18 138/67 98 Room Air 12/19/17 00:27 77 20 145/68 93 Room Air 12/18/17 23:17 77 18 135/95 95 Room Air 12/18/17 23:16 89 20 135/95 96 Room Air 12/18/17 23:10 78 19 123/111 94 12/18/17 22:20 81 24 12/18/17 22:16 83 12/18/17 22:11 127/67 12/18/17 22:10 93 Room Air 12/18/17 22:10 93 Room Air 12/18/17 21:06 36.4 67 16 127/77 98 Room Air Physical Exam General Appearance: WD/WN, no apparent distress Eyes: PERRL, sclerae normal ENT: hearing grossly normal Neck: supple, no adenopathy, no carotid bruits, trachea midline Respiratory/Chest: chest non-tender, normal breath sounds, no respiratory distress, no accessory muscle use, + crackles (bibasilar) Cardiovascular: regular rate, rhythm Abdomen: normal bowel sounds, soft, no organomegaly, + pertinent finding ( Tender to suprapubic palpation. +CVA tenderness on the R.) Extremities: non-tender, normal inspection Neurologic/Psychiatric: alert, normal mood/affect, oriented x 3 Skin: normal color, warm/dry, no rash Lymphatic: no adenopathy Laboratory Results 12/19/17 05:12 Red Blood Count 3.90, Mean Corpuscular Volume 92.8, Mean Corpuscular Hemoglobin 31.3, Mean Corpuscular Hemoglobin Concent 33.7, Mean Platelet Volume 8.3, Neutrophils (%) (Auto) 67.1, Lymphocytes (%) (Auto) 24.3, Monocytes (%) (Auto) 5.9, Eosinophils (%) (Auto) 2.2, Basophils (%) (Auto) 0.5, Neutrophils # (Auto) 4.22, Lymphocytes # (Auto) 1.53, Monocytes # (Auto) 0.37, Eosinophils # (Auto) 0.14, Basophils # (Auto) 0.03 12/19/17 05:12 Test 12/18/17 22:20 12/19/17 05:12 12/19/17 10:09 12/19/17 16:26 Prothrombin Time 10.0 SECONDS (9.0-12.0) Prothromb Time International Ratio 1.0 (0.9-1.1) Activated Partial Thromboplast Time 27.1 SECONDS (21.0-31.0) Partial Thromboplastin Ratio 1.0 Bedside Glucose 127 mg/dl (70-90) Total Bilirubin 0.5 mg/dl (0.2-1) Direct Bilirubin 0.1 mg/dl (0-0.2) Aspartate Amino Transf (AST/SGOT) 21 U/L (15-37) Alanine Aminotransferase (ALT/SGPT) 11 U/L (12-78) Alkaline Phosphatase 104 U/L (45-117) Total Creatine Kinase 282 U/L (26-192) Total Protein 7.2 gm/dl (6.4-8.2) Albumin 2.7 gm/dl (3.4-5.0) Thyroid Stimulating Hormone (TSH) 1.330 uIu/ml (0.300-4.500) Chemistry Specimen Hemolysis White Blood Count 6.29 K/uL (4.8-10.8) Red Blood Count 3.90 M/uL (4.2-5.4) Hemoglobin 12.2 g/dL (12.0-16.0) Hematocrit 36.2 % (37-47) Mean Corpuscular Volume 92.8 fL (80-100) Mean Corpuscular Hemoglobin 31.3 pg (25-34) Mean Corpuscular Hemoglobin Concent 33.7 g/dl (32-36) Platelet Count 255 K/uL (130-400) Mean Platelet Volume 8.3 fL (7.4-10.4) Neutrophils (%) (Auto) 67.1 % Lymphocytes (%) (Auto) 24.3 % Monocytes (%) (Auto) 5.9 % Eosinophils (%) (Auto) 2.2 % Basophils (%) (Auto) 0.5 % Neutrophils # (Auto) 4.22 K/uL (1.4-6.5) Lymphocytes # (Auto) 1.53 K/uL (1.2-3.4) Monocytes # (Auto) 0.37 K/uL (0.11-0.59) Eosinophils # (Auto) 0.14 K/uL (0-0.5) Basophils # (Auto) 0.03 K/uL (0-0.2) RDW Standard Deviation 47.5 fL (36.4-46.3) RDW Coefficient of Variation 14.1 % (11.5-14.5) Immature Granulocyte % (Auto) 0.0 % Immature Granulocyte # (Auto) 0.00 K/uL (0.00-0.02) Anion Gap 8.0 mmol/L (3-11) Est Creatinine Clear Calc Drug Dose 30.7 ml/min Estimated GFR () 28.9 Estimated GFR (Non- 24.9 BUN/Creatinine Ratio 13.9 (10-20) Calcium Level 8.6 mg/dl (8.5-10.1) Magnesium Level 2.2 mg/dl (1.8-2.4) Urine Color DK YELLOW Urine Appearance CLEAR (CLEAR) Urine pH 5.0 (4.5-7.5) Urine Specific [place] 1.007 (1.000-1.030) Urine Protein NEG (NEG) Urine Glucose (UA) NEG (NEG) Urine Ketones NEG (NEG) Urine Occult Blood 2+ (NEG) Urine Nitrite POS (NEG) Urine Bilirubin NEG (NEG) Urine Urobilinogen NEG (NEG) Urine Leukocyte Esterase SMALL (NEG) Urine WBC (Auto) 1-5 /hpf (0-5) Urine RBC (Auto) 0-4 /hpf (0-4) Urine Hyaline Casts (Auto) 0 /lpf (0-5) Urine Epithelial Cells (Auto) 0-5 /lpf (0-5) Urine Bacteria (Auto) 1+ (NEG) Troponin I 0.708 ng/ml (0-0.045) Assessment and Plan Patient is a 72 year old female with a past medical history of anxiety, depression, hypothyroidism, hypertension, in multiple falls that presents with confusion and a fall at 1:30 PM Altered Mental Status s/p Fall - Recent tx of UTI 2/2 cipro resistant E. 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 Discussed with Dr. Galan and agree with findings and plan as documented in the note. Any exceptions or clarifications are listed here: None Documented By: Grady Villasenor feeling better than when she came in pain iproved as well vitals noted nad breathing unlabored no pallor or icterus pyelonephritis, complicated UTI - continue empiric abx and supportive care, appears improving. await cultures otherwise as above Resident Tracking Resident Involvement: Resident Care Provided Care Provided: Adult Hospital Medicine
[2017-12-19] MEDS: METOPROLOL SUCC 25MG EXT REL TAB PO SCH (21:20)
[2017-12-19] MEDS: LOVASTATIN 20 MG TAB PO SCH (21:20)
[2017-12-19] MEDS: LORAZEPAM 0.5 MG TAB SL SCH (21:58)
[2017-12-20] VITALS (8 sets, daily range): BP systolic 109–181; BP diastolic 54–99; PULSE 60–80; TEMP 36.5–37; O2SAT 92–95
[2017-12-20] MEDS: SODIUM CHLORIDE 0.9% 1000ML 1,000 ML IV SCH ×3 (01:32→18:54)
[2017-12-20] MEDS: CEFTRIAXONE SOD INJ 1 GM in DEXTROSE 5% ADD-VANTAGE 50ML 50 ML IV SCH (04:13)
[2017-12-20] MEDS: LEVOTHYROXINE 150 MCG TAB PO SCH (05:14)
--- NOTE | 2017-12-20 07:01 | Family Medicine Progress Note ---
Progress Note Date of Service Dec 20, 2017. Subjective Pt evaluation today including: conversation w/ patient, conversation w/ family , physical exam, chart review, lab review, review of studies, review of inpatient medication list Pain: 2-3/10 PO Intake: Good Voiding: incontinence Mrs. Fong reports she feels a little better today. She reports he was incontinent of urine last night. She still has osme burning with urination, but improved from yesterday. She would like to get out of bed ot the chair today. Endorses some suprapubic pain and endorses some pain diffusely over her back. Denies SoB, chest pain, fevers, chills, sweats, nausea, vomiting, diarrhea, constipation overnight. Per tele was isnus in the 60's overnight with some PACs. Would like to get out of bed today, but no other questions or concerns. Constitutional: + weakness, + fatigue, No fever, No chills, No sweats Eyes: No worsening of vision Respiratory: No cough, No sputum, No shortness of breath, No dyspnea on exertion, No dyspnea at rest Cardiovascular: No chest pain Abdomen: + pain, No nausea, No vomiting, No diarrhea, No constipation Female : + dysuria Skin: No rash Medications Current Inpatient Medications Medications (Trade) Dose Ordered Sig/Brayan Route Start Time Stop Time Status Last Admin Dose Admin Ceftriaxone Sodium 1 gm/ Dextrose 50 ml @ 100 mls/hr Q24H IV 12/19/17 04:00 12/24/17 01:59 12/20/17 04:13 100 MLS/HR Sodium Chloride 1,000 ml @ 125 mls/hr Q8H IV 12/19/17 02:00 01/18/18 01:59 12/20/17 10:41 125 MLS/HR Aripiprazole (Abilify Tab) 15 mg DAILY PO 12/19/17 09:00 01/18/18 08:59 12/20/17 08:31 15 MG Duloxetine HCl (Cymbalta Cap) 60 mg BID PO 12/19/17 09:00 01/18/18 08:59 12/20/17 08:31 60 MG Levothyroxine Sodium (Synthroid Tab) 150 mcg DAILYBB PO 12/19/17 06:00 01/18/18 05:59 12/20/17 05:14 150 MCG Lovastatin (Mevacor Tab) 20 mg HS PO 12/19/17 21:00 01/18/18 20:59 12/19/17 21:20 20 MG Metoprolol Succinate (Toprol Xl Tab) 25 mg HS PO 12/19/17 21:00 01/18/18 20:59 12/19/17 21:20 25 MG Lorazepam (Ativan Tab) 0.5 mg HSZ SL 12/19/17 22:00 01/18/18 21:59 12/19/17 21:58 0.5 MG Oxycodone/ Acetaminophen (Percocet 7.5-325MG Tab) 1 tab TID PO 12/19/17 14:00 01/02/18 08:59 12/20/17 13:53 1 TAB Pantoprazole Sodium (Protonix Tab) 40 mg QAM PO 12/21/17 09:00 12/22/17 09:01 Objective Vital Signs Date Time Temp Pulse Resp B/P (MAP) Pulse Ox O2 Delivery O2 Flow Rate FiO2 12/20/17 16:15 Room Air 12/20/17 15:32 36.7 66 18 117/75 (89) 93 Room Air 12/20/17 13:45 36.5 68 18 126/71 (89) 92 Room Air 12/20/17 13:00 37.0 60 18 94 12/20/17 12:00 37.0 60 18 109/54 (72) 94 Room Air 12/20/17 08:28 122/63 (82) 115/68 (84) 12/20/17 08:20 Room Air 12/20/17 07:59 36.9 69 20 181/99 (126) 95 Room Air 12/20/17 04:56 36.7 65 16 147/74 (98) 93 Room Air 12/20/17 00:00 Room Air 12/19/17 23:49 36.5 67 15 136/70 (92) 93 Room Air 12/19/17 19:59 36.8 76 17 118/72 (87) 93 Room Air Physical Exam General Appearance: WD/WN, no apparent distress Eyes: normal inspection, EOMI ENT: hearing grossly normal Neck: supple, no adenopathy, no carotid bruits Respiratory/Chest: chest non-tender, lungs clear, normal breath sounds, no respiratory distress, no accessory muscle use Cardiovascular: regular rate, rhythm, no gallop, no murmur Abdomen: normal bowel sounds, soft, + pertinent finding (tenderness in the suprapubic region. Reports tenderness to CVA testing, but reports same tenderness over upper back as well. -06/10) Extremities: non-tender, normal inspection, normal capillary refill Neurologic/Psychiatric: alert, normal mood/affect Skin: normal color, warm/dry Lymphatic: no adenopathy Laboratory Results 12/20/17 06:56 Red Blood Count 3.67, Mean Corpuscular Volume 93.5, Mean Corpuscular Hemoglobin 30.0, Mean Corpuscular Hemoglobin Concent 32.1, Mean Platelet Volume 8.1, Neutrophils (%) (Auto) 64.8, Lymphocytes (%) (Auto) 26.0, Monocytes (%) (Auto) 6.5, Eosinophils (%) (Auto) 1.9, Basophils (%) (Auto) 0.6, Neutrophils # (Auto) 3.42, Lymphocytes # (Auto) 1.37, Monocytes # (Auto) 0.34, Eosinophils # (Auto) 0.10, Basophils # (Auto) 0.03 12/20/17 06:56 Test 12/20/17 06:56 White Blood Count 5.27 K/uL (4.8-10.8) Red Blood Count 3.67 M/uL (4.2-5.4) Hemoglobin 11.0 g/dL (12.0-16.0) Hematocrit 34.3 % (37-47) Mean Corpuscular Volume 93.5 fL (80-100) Mean Corpuscular Hemoglobin 30.0 pg (25-34) Mean Corpuscular Hemoglobin Concent 32.1 g/dl (32-36) Platelet Count 228 K/uL (130-400) Mean Platelet Volume 8.1 fL (7.4-10.4) Neutrophils (%) (Auto) 64.8 % Lymphocytes (%) (Auto) 26.0 % Monocytes (%) (Auto) 6.5 % Eosinophils (%) (Auto) 1.9 % Basophils (%) (Auto) 0.6 % Neutrophils # (Auto) 3.42 K/uL (1.4-6.5) Lymphocytes # (Auto) 1.37 K/uL (1.2-3.4) Monocytes # (Auto) 0.34 K/uL (0.11-0.59) Eosinophils # (Auto) 0.10 K/uL (0-0.5) Basophils # (Auto) 0.03 K/uL (0-0.2) RDW Standard Deviation 49.2 fL (36.4-46.3) RDW Coefficient of Variation 14.5 % (11.5-14.5) Immature Granulocyte % (Auto) 0.2 % Immature Granulocyte # (Auto) 0.01 K/uL (0.00-0.02) Anion Gap 7.0 mmol/L (3-11) Est Creatinine Clear Calc Drug Dose 46.6 ml/min Estimated GFR () 47.6 Estimated GFR (Non- 41.0 BUN/Creatinine Ratio 12.5 (10-20) Calcium Level 8.2 mg/dl (8.5-10.1) Troponin I 0.320 ng/ml (0-0.045) Assessment and Plan Patient is a 72 year old female with a past medical history of anxiety, depression, hypothyroidism, hypertension, in multiple falls that presents with confusion and a fall at 1:30 PM Altered Mental Status s/p Fall - Recent tx of UTI 2/2 cipro resistant E. 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
[2017-12-20 07:09] LABS: BASO % 0.6 %; BASO ABS # 0.03 K/uL (0-0.2); EOS % 1.9 %; HEMATOCRIT 34.3 % (37-47); IG# 0.01 K/uL (0.00-0.02); LYMPH ABS # 1.37 K/uL (1.2-3.4); MEAN CELL VOLUME 93.5 fL (80-100); MEAN CORPUSCULAR HGB CONC 32.1 g/dl (32-36); MEAN PLATELET VOLUME 8.1 fL (7.4-10.4); MONO % 6.5 %; MONO ABS # 0.34 K/uL (0.11-0.59); NEUT % 64.8 %; NEUT ABS # 3.42 K/uL (1.4-6.5); PLATELET COUNT 228 K/uL (130-400); RED CELL DISTRIBUTION WIDTH CV 14.5 % (11.5-14.5); RED CELL DISTRIBUTION WIDTH SD 49.2 fL (36.4-46.3); WHITE BLOOD COUNT 5.27 K/uL (4.8-10.8)
[2017-12-20 07:40] LABS: CALCIUM 8.2 mg/dl (8.5-10.1); CREATININE 1.29 mg/dl (0.60-1.20); POTASSIUM 4.4 mmol/L (3.5-5.1)
[2017-12-20] MEDS: ARIPIprazole TAB 15 MG TAB PO SCH (08:31)
[2017-12-20] MEDS: DULOXETINE HCL 60 MG CAP PO SCH ×2 (08:31→21:25)
[2017-12-20] MEDS: OXYCODONE/ACETAMINOPHEN 7.5-325 TAB PO SCH ×3 (08:31→21:26)
[2017-12-20] MEDS: PANTOprazole INJ 40 MG in SYRINGE 0 ML IV SCH (10:41)
--- NOTE | 2017-12-20 10:49 | Clinical Documentation Query ---
KRISTI Rolon : CLINICAL DOCUMENTATION QUERY Patient is a 72 year old female presenting for evaluation of confusion s/p multiple falls. She recently was treated for a UTI as an outpatient. Admission troponin 1.27 ng/ml with subsequent decline. EKG demonstrated lateral ST segment depression in contiguous lateral leads. H&P suggested plan for cardiology consultation. This was never ordered. As appropriate, if not considered to r/t acute plaque rupture, consider this a manifestation of a supply-demand mismatch ischemic event as suggested below as this impacts accurate DRG assignment. Thank you. In your clinical opinion is this patient being managed for: ( ) (Possible/Suspected) NSTEMI in the day(s) prior to admission (x ) Not Agree ---demand ischemia ( ) Other explanation of clinical findings (No explanation is considered a No Response) ( ) Unable to determine ( ) Need to Discuss (Phone CDS or qliq) (No discussion is considered a No Response) The medical record reflects the following clinical findings, treatment, and risk factors. Clinical Indicators: As above Treatment: B-sunny, statin, ?plan for cardiology consultation, telemetry, serial troponin's. Risk Factors: Age, infection, physical/emotional stress r/t aging/frequent falls, weakness Please clarify and document your clinical opinion in the progress notes and discharge summary. Terms such as "probable", "suspected", "likely", "questionable", "possible", or "still to be ruled out" are acceptable. IF IN AGREEMENT, YOU MUST DOCUMENT ABOVE DIAGNOSTIC STATEMENT IN DAILY PROGRESS NOTES AND DISCHARGE SUMMARY. This document is not part of the patient's record. Thank You, Jimbo Candelario, ERIKA [phone]
[2017-12-20] MEDS ORDERED: ENOXAPARIN 40 MG/0.4 ML SYR SQ SCH (21:00)
[2017-12-20] MEDS: LOVASTATIN 20 MG TAB PO SCH (21:25)
[2017-12-20] MEDS: LORAZEPAM 0.5 MG TAB SL SCH (21:26)
[2017-12-20] MEDS: METOPROLOL SUCC 25MG EXT REL TAB PO SCH (21:26)
[2017-12-21] MEDS: SODIUM CHLORIDE 0.9% 1000ML 1,000 ML IV SCH ×2 (02:33→09:56)
[2017-12-21] MEDS: CEFTRIAXONE SOD INJ 1 GM in DEXTROSE 5% ADD-VANTAGE 50ML 50 ML IV SCH (04:04)
[2017-12-21] MEDS: LEVOTHYROXINE 150 MCG TAB PO SCH (05:44)
[2017-12-21 07:11] LABS: BASO % 0.4 %; BASO ABS # 0.02 K/uL (0-0.2); EOS % 3.3 %; EOS ABS # 0.18 K/uL (0-0.5); HEMATOCRIT 33.5 % (37-47); HEMOGLOBIN 10.5 g/dL (12.0-16.0); LYMPH % 28.2 %; LYMPH ABS # 1.52 K/uL (1.2-3.4); MEAN CELL VOLUME 94.9 fL (80-100); MEAN CORPUSCULAR HEMOGLOBIN 29.7 pg (25-34); MEAN CORPUSCULAR HGB CONC 31.3 g/dl (32-36); MEAN PLATELET VOLUME 8.4 fL (7.4-10.4); MONO % 7.1 %; MONO ABS # 0.38 K/uL (0.11-0.59); NEUT ABS # 3.29 K/uL (1.4-6.5); PLATELET COUNT 245 K/uL (130-400); RED CELL DISTRIBUTION WIDTH CV 14.8 % (11.5-14.5); RED CELL DISTRIBUTION WIDTH SD 50.5 fL (36.4-46.3); WHITE BLOOD COUNT 5.39 K/uL (4.8-10.8)
[2017-12-21 07:31] VITALS: BP 150/97; PULSE 62; TEMP 36.7; O2SAT 94
[2017-12-21 07:50] LABS: CALCIUM 7.9 mg/dl (8.5-10.1); CREATININE 0.97 mg/dl (0.60-1.20); POTASSIUM 4.6 mmol/L (3.5-5.1)
[2017-12-21 08:00] VITALS: O2SAT 94
[2017-12-21] MEDS: ARIPIprazole TAB 15 MG TAB PO SCH (08:26)
[2017-12-21] MEDS: DULOXETINE HCL 60 MG CAP PO SCH (08:26)
[2017-12-21] MEDS: OXYCODONE/ACETAMINOPHEN 7.5-325 TAB PO SCH (08:31)
[2017-12-21] MEDS ORDERED: PANTOprazole SOD 40 MG TAB PO SCH (09:00)
[2017-12-21 09:30] VITALS: BP 142/88; PULSE 62; O2SAT 95
[2017-12-21] MEDS ORDERED: KFL500 PO (11:56)
--- NOTE | 2017-12-21 12:02 | Discharge Instructions ---
Discharge Instructions Date of Service Dec 21, 2017. Admission Reason for Admission: Altered Mental Status, Uti Discharge Discharge Diagnosis / Problem: urinary tract infection involving the kidney ( pyelonephritis) Discharge Goals Goal(s): Diagnostic testing, Therapeutic intervention Activity Recommendations Activity Limitations: resume your previous activity . Instructions / Follow-Up Instructions / Follow-Up urinary tract infection involving the kidney (pyelonephritis) -you were ill due to a kidney infection caused by a fairly antibiotic resistant strain of E Coli. E Coli is by far the most common urinary tract infection bacteria, but with the antibiotic resistance it's a little more narrow with what antibiotics we can use to treat. -fortunately it was sensitive to all antibiotics tested in the class of cephalosporins (which is what we had you on, and what we'll send you home on) -it appears that an easy to tolerate antibiotic called cephalexin should work well to clear the rest of this infection - of course since it's a transition from IV to oral, if you were to have worsening of symptoms or a fever over the next few days we'd want you to call right away -cephalexin is a three time a day antibiotic, take your next dose tonight. we' ve written the Rx for a presumptive 14 total days (the days IV here plus another 11 days of oral at home) -- however, if you're getting better really well and really fast, Dr Camacho may be able to direct you to stop the antibiotics sooner (our navigator will be working to get you scheduled with her for early to mid next week) Current Hospital Diet Patient's current hospital diet: AHA Diet (Heart Healthy) Discharge Diet Recommended Diet: AHA Diet (Heart Healthy) Pending Studies Studies pending at discharge: no Laboratory Results Lipid Panel Test 12/14/17 15:58 Range/Units Triglycerides Level 266 H 0-150 mg/dl Cholesterol Level 128 0-200 mg/dl HDL Cholesterol 41 mg/dl Cholesterol/HDL Ratio 3.1 LDL Cholesterol, Calculated 34 mg/dl Medical Emergencies . Who to Call and When: Medical Emergencies: If at any time you feel your situation is an emergency, please call 911 immediately. . Non-Emergent Contact Non-Emergency issues call your: Primary Care Provider . . "Provider Documentation" section prepared by Grady Villasenor. .
[2017-12-21 12:08] VITALS: BP 142/88; PULSE 62; TEMP 36.7; O2SAT 95
--- NOTE | 2017-12-21 19:37 | Discharge Summary ---
Discharge Summary Date of Service Dec 21, 2017. Discharge Summary Admission Date: Dec 19, 2017 at 01:52 Discharge Date: Dec 21, 2017 Discharge Disposition: Home Principal Diagnosis: Altered Mental Status in setting of Complicated Pyelonephritis Immunizations: Have You Had Influenza Vaccine: No History of Tetanus Vaccine?: Yes History of Pneumococcal: No History of Hepatitis B Vaccine: Yes Procedures: CT OF THE ABDOMEN AND PELVIS WITHOUT CONTRAST CLINICAL HISTORY: Fall. COMPARISON STUDY: No previous studies for comparison. TECHNIQUE: Axial images of the abdomen and pelvis were obtained without IV contrast. Images were reviewed in the axial, sagittal, and coronal planes. A dose lowering technique was utilized adhering to the principles of ALARA. FINDINGS: No hemoperitoneum or pneumoperitoneum is present. Evaluation of the solid abdominal viscera is suboptimal on this unenhanced exam. There is no evidence for traumatic injury to the liver, spleen, adrenal glands, kidneys or pancreas. Pancreatic glandular atrophy is noted. There is borderline splenomegaly. A water attenuation 3.2 cm lesion within the left kidney is suboptimally assessed on this unenhanced exam but favors a cyst. There is no evidence for a bowel obstruction. Bladder is moderately distended. A moderate amount stool is noted within the colon. There is no free fluid. No acute pelvic fracture is identified. Lumbar spine CT will be reported separately. IMPRESSION: 1. No acute traumatic findings within the abdomen or pelvis although evaluation compromised given the lack of IV contrast. 2. Mild splenomegaly. 3. Moderate amount of stool within the colon. 4. Moderate distention of the bladder. Electronically signed by: Bashir Macias M.D. 12/18/2017 11:23 PM Dictated Date/Time: 12/18/2017 11:16 PM [~ rep ct add3]] CT OF THE CERVICAL SPINE WITHOUT CONTRAST CLINICAL HISTORY: Fall. COMPARISON STUDY: Cervical spine CT October 07, 2016. TECHNIQUE: Helical axial images of the cervical spine were obtained without IV contrast. Sagittal and coronal reconstructions were viewed. A dose lowering technique was utilized adhering to the principles of ALARA. FINDINGS: Craniocervical junction is intact. There is no acute cervical spine fracture. Mild loss of height of the superior endplate of C7 is unchanged since exam of October 07, 2016. There is no prevertebral edema. Facet joints are intact. There is severe multilevel facet arthrosis and moderate multilevel degenerative disc disease of the cervical spine. IMPRESSION: No acute cervical spine fracture or subluxation. CT OF THE CHEST WITHOUT IV CONTRAST CLINICAL HISTORY: Fall. COMPARISON STUDY: Chest radiograph September 13, 2007. CT DOSE: 3486.24 mGy.cm TECHNIQUE: Axial images of the chest were obtained without IV contrast. Images were reviewed in the axial, sagittal, and coronal planes. IV contrast was not administered for this examination. A dose lowering technique was utilized adhering to the principles of ALARA. FINDINGS: No mediastinal hematoma is present. A lobulated 1.6 x 1.1 cm anterior mediastinal nodule is noted. The heart is mildly enlarged. There is no pericardial effusion. Thoracic aorta is suboptimally assessed on this unenhanced exam. No pneumothorax or pleural effusion is present. Groundglass opacities favor atelectasis. Thoracic spine will be reported separately. No acute rib fracture is identified on this exam. IMPRESSION: 1. No acute traumatic findings within the chest. 2. Lobulated 1.6 x 1.1 cm anterior mediastinal soft tissue nodule which is nonspecific but may reflect a small thymoma. Electronically signed by: Bashir Macias M.D. 12/18/2017 11:14 PM Dictated Date/Time: 12/18/2017 11:[address] OF THE HEAD WITHOUT CONTRAST CLINICAL HISTORY: Fall. COMPARISON STUDY: Head CT January 09, 2017. TECHNIQUE: Helical axial images of the head were obtained without IV contrast. Automated exposure control was utilized for the study. A dose lowering technique was utilized adhering to the principles of ALARA. FINDINGS: No acute intracranial hemorrhage, midline shift or mass effect is present. Ventricular system is stable. Basilar cisterns are patent. There are no extra-axial collections. Castillo-white differentiation is maintained. There is no calvarial fracture. Postoperative findings within the sinuses are noted. Left nasal bone deformity is chronic. IMPRESSION: 1. No acute intracranial findings. 2. No calvarial fracture. Electronically signed by: Bashir Macias M.D. 12/18/2017 10:51 PM [~ rep ct add3]] PELVIS/BILATERAL HIP 2 VIEWS CLINICAL HISTORY: fall, pain COMPARISON STUDY: No previous studies for comparison. FINDINGS: Sacroiliac joints and symphysis pubis are intact. There is no acute fracture within the pelvis or hips. There is mild osteoarthritis of both hips. IMPRESSION: No acute fracture within the pelvis or hips. Electronically signed by: Bashir Macias M.D. 12/18/2017 11:27 PM Dictated Date/Time: 12/18/2017 11:26 PM [~ rep ct add3]] L KNEE 3 VIEWS CLINICAL HISTORY: fall, pain COMPARISON: Left knee radiographs October 04, 2007. FINDINGS: Alignment of the total left knee arthroplasty is anatomic. There is no periprosthetic fracture or joint effusion. Calcific densities posterior to the joint spaces are chronic. IMPRESSION: Status post total left knee arthroplasty. No periprosthetic fracture. No joint effusion. Electronically signed by: Bashir Macias M.D. 12/18/2017 11:05 PM Dictated Date/Time: 12/18/2017 11:05 PM [~ rep ct add3]] R KNEE 3 VIEWS CLINICAL HISTORY: Right knee pain following fall. COMPARISON: Right knee radiographs October 04, 2007. FINDINGS: Alignment of the total right knee arthroplasty is anatomic. There is no acute fracture. Heterotopic ossification is noted. Spurring of the patella is chronic. There is no joint effusion. IMPRESSION: Status post total right knee arthroplasty. No periprosthetic fracture. No joint effusion. Electronically signed by: Bashir Macias M.D. 12/18/2017 11:04 PM Dictated Date/Time: 12/18/2017 11:03 PM LUMBAR SPINE WITHOUT CLINICAL HISTORY: Fall. COMPARISON STUDY: No previous studies for comparison. TECHNIQUE: Axial images of the lumbar spine were obtained without IV contrast. Sagittal and coronal reconstructions were viewed. FINDINGS: The abdomen and pelvis will be reported separately. No acute lumbar spine fracture is noted. There is 4 mm of anterolisthesis of L4 and L5 due to facet arthrosis. There is moderate to severe multilevel degenerative disc disease and severe multilevel facet arthrosis. Mild loss of height of the inferior endplate of T12 is likely chronic. Sacroiliac joints are intact. IMPRESSION: 1. No acute lumbar spine fracture or subluxation. 2. Grade I anterolisthesis of L4 and L5 likely due to facet arthrosis. 3. Severe multilevel facet arthrosis and moderate multilevel degenerative disc disease. Electronically signed by: Bashir Macias M.D. 12/18/2017 11:26 PM Dictated Date/Time: 12/18/2017 11:24 PM [~ rep ct add3]] THORACIC SPINE WITHOUT CLINICAL HISTORY: fall COMPARISON STUDY: No previous studies for comparison. TECHNIQUE: Axial images of the thoracic spine were obtained without IV contrast. Sagittal and coronal reconstructions were viewed. FINDINGS: Mild loss of height of the inferior endplate of T12 is likely chronic. No acute thoracic spine fracture is identified. There is mild multilevel disc space narrowing with moderate anterior osteophytosis. The chest CT will be reported separately. IMPRESSION: 1. No acute thoracic spine fracture or subluxation. 2. Mild loss of height of the inferior endplate of T12 which is likely old. Electronically signed by: Bashir Macias M.D. 12/18/2017 11:16 PM Dictated Date/Time: 12/18/2017 11:14 PM Discharge Exam Review of Systems: Constitutional: No fever, No chills, No sweats, No weakness, No fatigue Respiratory: No cough, No shortness of breath, No dyspnea on exertion, No dyspnea at rest Cardiovascular: No chest pain Abdomen: No pain, No nausea, No vomiting, No diarrhea, No constipation Musculoskeletal: + problem reported (endorses some chronic mid-low back pain ) Genitourinary - Female: No dysuria, No urinary frequency, No urinary urgency Integumentary: No rash, No itch, No new/changing skin lesions Physical Exam: General Appearance: WD/WN, no apparent distress Eyes: normal inspection, PERRL, sclerae normal ENT: hearing grossly normal Neck: supple, no adenopathy, no carotid bruits, trachea midline Respiratory/Chest: chest non-tender, lungs clear, normal breath sounds, no respiratory distress, no accessory muscle use Cardiovascular: regular rate, rhythm, no edema, no murmur, normal peripheral pulses Abdomen / GI: normal bowel sounds, non tender, soft, no organomegaly Neurologic/Psychiatric: alert, normal mood/affect, oriented x 3 Skin: normal color, warm/dry, no rash Lymphatic: no adenopathy Hospital Course Mrs. Leora Fong is a 72 year old female with a past medical history of anxiety, depression, hypothyroidism, hypertension, and multiple falls that presented with confusion and a fall and who was admitted for AMS in the setting of complicated pyelonephritis. She had recent treatment of a cipro resistant UTI with Macrobid. She had an mild elevated troponin with initial EKG showing some flipped t waves without ST changes and KEZIA with Cr to 2.8 from a baseline of 0.8. Her UA was positive for blood, bacteria, nitrates, and leukocyte esterase. CT-A/P, CT-Cspine, CT-Lspine, CT-TSpine, CT-Chest, CT-Head, XR Hip/ Pelvis, Knee Xray showed no acute fractures, intracranial bleeds, or traumatic bleeds. She was started on IVFM and empiric rocephin based on prior cultures. Her Cr and troponin both downtrended. She did not have a leukocytosis on admit, and remained afebrile. UC returned positive for E. coli resistant to cipro, ampicillin, gentamycin, levo, nitrofurantoin, tobramycin, and TMP/SMX. She clinically improved and felt comfortable with discharge on 12/21. She was converted to oral keflex based on susceptibility to cefzol, rocephin, and cefuroxime and discharged with close followup to her PCP. Resident Physician Supervision Note: I interviewed and examined the patient. Discussed with Dr. Galan and agree with findings and plan as documented in the note. Any exceptions or clarifications are listed here: None Documented By: Grady Villasenor feeling up to going home vitals noted nad breathing unlabored no pallor or icterus pyelonephritis, complicated UTI - sensitive to cephalosporins - was on ceftriaxone inpt, can send on cephalexin outpt - presumptive 14 days total due to dx, but if improves rapidly PCP can consider stopping early otherwise as above Total Time Spent: Less than 30 minutes This includes examination of the patient, discharge planning, medication reconciliation, and communication with other providers. Discharge Instructions Please refer to the electronic Patient Visit Report (Discharge Instructions) for additional information. Follow-Up PCP Mitzi Camacho MD Additional Copies To Mitzi Camacho MD
== END 2017-12-21 13:07 | disposition home or self-care (01) | DRG 689 ==
LOC: C.EDB 21:01 → C.2E 12-19 01:52 → ENRESERV 12-19 02:07 → C.MS2W 12-20 12:18 → ENRESERV 12-20 12:22
PROVIDERS: ADMIT Student in an Organized Health Care Education/Training Program; ATTEND Family Medicine
DX: N12 Tubulo-interstitial nephritis, not specified as acute or chronic (principal); I24.8 Other forms of acute ischemic heart disease; G93.41 Metabolic encephalopathy; E03.9 Hypothyroidism, unspecified; N17.9 Acute kidney failure, unspecified; F41.8 Other specified anxiety disorders; I10 Essential (primary) hypertension; E86.0 Dehydration; B96.20 Unspecified Escherichia coli [E. coli] as the cause of diseases classified elsewhere; W18.2XXA Fall in (into) shower or empty bathtub, initial encounter; Y92.012 Bathroom of single-family (private) house as the place of occurrence of the external cause; R29.6 Repeated falls

== ENCOUNTER 2023-01-01 18:10 | Inpatient (IN) ==
[2023-01-01] MEDS ORDERED: MoRPHine SULFATE 4 MG/ML 1 ML CARP\\VIAL IV STA ×3 (18:20→22:11)
[2023-01-01] MEDS ORDERED: ONDANSETRON INJ 2 MG/ML 2 ML VIAL IV STA (18:20)
[2023-01-01] MEDS ORDERED: SODIUM CHLORIDE 0.9% 500 ML IV ONE (18:20)
[2023-01-01 18:54] LABS: Hematocrit (blood only) 39.8 % (37.0-47.0); Hemoglobin 12.7 g/dl (12.0-16.0); Mean Corpuscular Hemoglobin 29.6 pg (25.0-34.0); Mean Corpuscular Hgb Conc 31.9 g/dL (32.0-36.0); Mean Corpuscular Volume 92.8 fL (80.0-100.0); Mean Platelet Volume 8.6 fL (9.4-12.4); Platelet Count 531 K/uL (130-400); RDW Coefficient of Variation 15.8 % (11.5-14.5); RDW Standard Deviation 53.2 fL (36.4-46.3); Red Blood Count 4.29 M/uL (4.20-5.40); White Blood Count 26.07 K/ul (4.8-10.8)
[2023-01-01 19:14] LABS: Basophils # (auto) 0.07 K/uL (0.00-0.20); Basophils % (auto) 0.3 %; Echinocytes 1+; Eosinophils # (auto) 0.23 K/uL (0.00-0.50); Eosinophils % (auto) 0.9 %; Immature Granulocytes # (auto) 0.15 K/uL (0.01-0.20); Immature Granulocytes % (auto) 0.6 %; Lymphocytes # (auto) 2.24 K/uL (1.20-3.40); Lymphocytes % (auto) 8.6 %; Monocytes # (auto) 1.12 K/uL (0.11-0.59); Monocytes % (auto) 4.3 %; Neutrophils # (auto) 22.26 K/uL (1.40-6.50); Neutrophils % (auto) 85.3 %; Polychromasia 1+; Toxic Vacuolation 1+
[2023-01-01 19:25] LABS: Partial Thromboplastin Time 27.7 Seconds (21.0-31.0)
[2023-01-01 19:26] LABS: Alanine Aminotransferase 8 U/L (7-52); Albumin Level 2.5 gm/dl (3.4-5.0); Alkaline Phosphatase 153 U/L (34-104); Anion Gap 7 (3-11); BUN Creatinine Ratio 21.6 (10-20); Bilirubin,Total 0.5 mg/dl (0.2-1.0); Blood Urea Nitrogen 16 mg/dl (6-23); Carbon Dioxide 28 mmol/L (21-32); Chloride 98 mmol/L (98-107); Creatinine Clr Calc Pharmacy 69.3 ml/min; Est GFR (African American) 89.9 ml/min; Est GFR (Non-African American) 77.6 ml/min; Glucose 118 mg/dl (70-99(Fasting)); Lipase 22 U/L (11-82); Sodium 133 mmol/L (136-145); Total Protein 6.2 gm/dl (6.0-8.3)
--- NOTE | 2023-01-01 19:30 | XRay Report ---
CHEST AND ABDOMEN 2 VIEWS HISTORY: epigastric pain COMPARISON: Abdomen and pelvis CT 02/07/2019. Chest CT 12/18/2017. FINDINGS: No pneumothorax. No pleural effusions. There is elevation of the right hemidiaphragm. The l ungs are clear. The heart is normal in size. Calcifications in the deep pelvis consistent with phlebo liths. No definite renal or ureteral calculi. There is a distended loop of bowel within the upper abd omen. This could represent the distended sigmoid colon or cecum. This measures up to 18 cm in diamete r. Moderate to large amount well-formed stool seen throughout the colon. No dilated loops of small alee wel identified. IMPRESSION: 1. No acute process within the chest. 2. There is a distended loop of bowel within the upper abdomen. This could represent the distended si gmoid colon or cecum. This measures up to 18 cm in diameter. This is indeterminate but could represen t a cecal or sigmoid volvulus in the appropriate clinical setting. A follow-up abdomen and pelvis CT can be performed for further evaluation. ACT 112: Negative or not required by law. Electronically signed by: Noel Ward M.D. 01/01/2023 7:27 PM
[2023-01-01 19:37] LABS: Troponin I High Sensitivity 22.5 pg/ml (0-14)
[2023-01-01 19:43] LABS: D Dimer 1640 ug/L FEU (0-500)
[2023-01-01 19:58] LABS: iSTAT Creatinine 0.8 mg/dl (0.6-1.3); iSTAT Hemoglobin 14.3 g/dl (12.0-16.0); iSTAT Ionized Calcium 1.07 mmol/l (1.12-1.32); iSTAT Potassium 4.5 mmol/L (3.3-5.0)
[2023-01-01] MEDS ORDERED: IOVERSOL 350 MG 125mL Prefilled Syringe IV ONE (20:32)
--- NOTE | 2023-01-01 21:25 | CT Scan Report ---
Exam(s): CT ABDOMEN + PELVIS With Contrast IV Amt: 116 ml optiray 350 EXAM: CT Abdomen and Pelvis With Intravenous Contrast CLINICAL HISTORY: Epigastric pain. TECHNIQUE: Axial computed tomography images of the abdomen and pelvis with intravenous contrast. CTDI is 22.68 mGy and DLP is 1208.43 mGy-cm. Automated exposure control was utilized for the study. A dose lowering technique was utilized adhering to the principles of ALARA. CONTRAST: Patient received 116 ml optiray 350 of IV contrast COMPARISON: CT abdomen and pelvis 02/07/2019 FINDINGS: Lung bases: Unremarkable. No mass. No consolidation. ABDOMEN: Liver: Unremarkable. No mass. Gallbladder and bile ducts: Dilated common bile duct with enhancement of the wall. No calcified stones. Pancreas: There is stable marked fatty replacement of the pancreas. No ductal dilation. Spleen: Unremarkable. No splenomegaly. Adrenals: Unremarkable. No mass. Kidneys and ureters: Question striated nephrograms bilaterally which is concerning for acute tubular necrosis and/or acute pyelonephritis, clinical correlation is recommended. The kidneys demonstrate lobulation and/or cortical scarring. No hydronephrosis of either kidney. There is a simple appearing left renal cyst, no follow-up is needed. Stomach and bowel: Marked thickening of the descending and sigmoid colon is also noted in nonspecific. There is thickening of the proximal duodenum. Diverticulosis. No obstruction. PELVIS: Appendix: Normal appendix. Bladder: Unremarkable. No mass. Reproductive: Unremarkable as visualized. ABDOMEN and PELVIS: Intraperitoneal space: Unremarkable. No free air. No significant fluid collection. Bones/joints: There are degenerative changes of the spine. No acute fracture. No dislocation. Soft tissues: Unremarkable. Vasculature: Mild atherosclerosis. No abdominal aortic aneurysm. Lymph nodes: Unremarkable. No enlarged lymph nodes. IMPRESSION: 1. Dilated common bile duct with enhancement of the wall. This is concerning for ascending cholangitis. 2. Question striated nephrograms bilaterally which is concerning for acute tubular necrosis and/or acute pyelonephritis, clinical correlation is recommended. 3. Marked thickening of the descending and sigmoid colon is also noted in nonspecific. Correlation with colonoscopy is recommended as malignancy should be excluded. 4. There is thickening of the proximal duodenum. This is nonspecific and may be reactive, infectious or inflammatory. 5. There is stable marked fatty replacement of the pancreas. 6. Diverticulosis. Electronically signed by: Guerline Jung MD 01/01/23 21:24 PM
--- NOTE | 2023-01-01 21:41 | CT Scan Report ---
Exam(s): CTA CHEST IV Amt: 116 ml optiray 350 EXAM: CT Angiography Chest With Intravenous Contrast CLINICAL HISTORY: Pulmonary embolus. TECHNIQUE: Axial computed tomographic angiography images of the chest with intravenous contrast. CTDI is 23.66 mGy and DLP is 740.26 mGy-cm. Automated exposure control was utilized for the study. A dose lowering technique was utilized adhering to the principles of ALARA. MIP reconstructed images were created and reviewed. COMPARISON: CT chest 12/18/2017. FINDINGS: Pulmonary arteries: Unremarkable. No pulmonary embolus. Aorta: No acute findings. Mild atherosclerosis. No thoracic aortic aneurysm. Lungs: Interseptal thickening is concerning for pulmonary edema. No mass. Pleural space: Unremarkable. No significant effusion. No pneumothorax. Heart: Redemonstrated lipomatous hypertrophy of the intra-atrial septum. No significant pericardial effusion. No evidence of RV dysfunction. Bones/joints: There are degenerative changes of the spine. No acute fracture. No dislocation. Soft tissues: Unremarkable. Lymph nodes: A 1.4 cm AP window lymph node is nonspecific. IMPRESSION: 1. No pulmonary embolus. 2. Interseptal thickening is concerning for pulmonary edema. 3. Worsened lipomatous hypertrophy of the intra-atrial septum. 4. A 1.4 cm AP window lymph node is nonspecific, this may be infectious, inflammatory or neoplastic. Electronically signed by: Guerline Jung MD 01/01/23 21:40 PM
[2023-01-01] MEDS ORDERED: metroNIDAZOLE 500 MG/100 ML BAG IV STA (22:04)
[2023-01-01] MEDS ORDERED: cefTRIAXone SODIUM 2,000 MG/70 ML BAG IV STA (22:04)
[2023-01-01] MEDS ORDERED: SODIUM CHLORIDE 0.9% 1,000 ML IV SCH (22:15)
--- NOTE | 2023-01-01 23:33 | Emergency Department Note ---
History of Present Illness General Chief Complaint: Illness Stated Complaint: UPPER GASTRIC PAIN Time Seen by Provider: 01/01/23 18:13 History of Present Illness Provider Complaint: abdominal pain Onset (ago): 1 day(s) Pain Consistency: constant Location: epigastric Radiation: back and chest Severity: moderate Maximum Pain Intensity: 7 Current Pain Intensity: 7 Quality: + stabbing and + sharp Relieved By: + nothing Exacerbated By: + other (Inspiration) Context: no foreign travel, no possible food poisoning, no sick contacts, no rec ent antibiotic use, no recent surgery/procedure or no recent injury Associated Symptoms: + nausea and + vomiting; no diarrhea, no fever, no chills, no constipation, no dysuria, no hematemesis, no hematochezia, no melena, no hematuria, no syncope, no headache, no back pain, no chest pain and no breathing difficulty Home Medications Medication Instructions Recorded Confirmed Type duloxetine 60 mg capsule,delayed 60 mg PO BID #180 caps 10/19/21 01/01/23 Rx release omeprazole 40 mg capsule,delayed 40 mg PO DAILY #90 caps 01/04/22 01/01/23 Rx release dicyclomine 10 mg capsule 10 mg PO DAILY PRN abdominal 07/14/22 01/01/23 Rx discomfort #90 caps lovastatin 20 mg tablet 20 mg PO HS #90 tabs 11/02/22 01/01/23 Rx metoprolol succinate 25 mg 25 mg PO HS #90 tabs 11/02/22 01/01/23 Rx tablet,extended release 24 hr quetiapine 200 mg tablet,extended 200 mg PO DAILY #90 tabs 11/02/22 01/01/23 Rx release 24 hr oxycodone-acetaminophen 7.5 mg-325 1 tab PO TID PRN pain #90 tabs 12/07/22 01/01/23 Rx mg tablet biotin 10,000 mcg chewable tablet 10,000 mcg PO DAILY 01/01/23 01/01/23 History (Hair, Skin and Nails (biotin)) cyanocobalamin (vitamin B-12) 5,000 mcg PO DAILY 01/01/23 01/01/23 History 5,000 mcg disintegrating tablet ginkgo biloba leaf extract 120 1 tab PO DAILY 01/01/23 01/01/23 History mg-choline bitartrate 110 mg tablet ([facility]) levothyroxine 137 mcg tablet 137 mcg PO DAILYBB 01/01/23 01/01/23 History meloxicam 15 mg tablet 15 mg PO DAILY 01/01/23 01/01/23 History multivitamin 1 tab PO DAILY 01/01/23 01/01/23 History tolterodine 4 mg capsule,extended 4 mg PO DAILY 01/01/23 01/01/23 History release 24 hr Allergies Allergy/AdvReac Type Severity Reaction Status Date / Time Sulfa (Sulfonamide Allergy Unknown Verified 01/01/23 23:38 Antibiotics) ciprofloxacin [From Cipro] AdvReac Severe interferrs Verified 01/01/23 23:38 with her medications Past Med/Surg History Medical History Altered mental status Anemia Anxiety Arthritis B12 deficiency Chronic pain Cognitive impairment Depression Fibromyalgia GERD (gastroesophageal reflux disease) HLD (hyperlipidemia) HTN (hypertension) Hypothyroidism Insomnia MGUS (monoclonal gammopathy of unknown significance) Urge and stress incontinence Surgical History History of dental surgery History of knee replacement Hx of cholecystectomy Family History Mother Cancer Lung Lung cancer Father Lymphoma Aunt Breast cancer Denies family history of Ovarian cancer Prostate cancer Myocardial infarction Colorectal cancer Social History Smoking Status: Never smoker Second Hand Exposure: No; Do You Dip or Chew Tobacco: No; Hx Alcohol Use: No Hx Substance Use: No Preferred Language: Turkish Communication Ability: Effective Visual Impairment: No Limitations Hearing Ability: Normal Electronic Drafter Required: No Beliefs That Will Affect Care: None marital status: Current Living Situation: Spouse current occupational status: retired Feels Safe at Home: Yes Childhood Exposure to Second-Hand Smoke: Yes Diet: regular Diet Comment: regular caffeine: Yes (soda) during the past year weight has: decreased > 10 lbs Dental Care, Regularly: Yes Physical Activity Frequency: 1-2 Times per Week Seatbelt Use: always Sunscreen Use: Yes Assistive Devices: Cane Physical Exam Vital Signs: Vital Signs - 24 hr 01/01/23 18:22 01/01/23 18:22 01/01/23 18:38 Temperature 37.0 C Temperature Source Oral Pulse Rate 110 H 108 H Pulse Rate [Apical ] Pulse Rhythm Regular Pulse Strength Normal Respiratory Rate 20 Respiratory Effort / Characteristics Non-Labored Respiratory Depth Normal Respiratory Patter n Regular Blood Pressure 173/96 H Blood Pressure [Ri ght Arm] Blood Pressure Gosia n 121 Blood Pressure Gosia n [Right Arm] Blood Pressure Pos ition Lying Pulse Oximetry 97 Oxygen Delivery Me thod Room Air Room Air Sepsis Recent Feve r Within 48 Hours No Sepsis New/Unexpla ined Change in Men jud Status N/A Sepsis Action Take n by Nursing No Action Required 01/01/23 20:49 01/01/23 22:01 01/01/23 23:00 Temperature Temperature Source Pulse Rate Pulse Rate [Apical ] 103 H 109 H 106 H Pulse Rhythm Pulse Strength Respiratory Rate 20 18 20 Respiratory Effort / Characteristics Respiratory Depth Respiratory Patter n Blood Pressure Blood Pressure [Ri ght Arm] 187/101 H 164/91 H 133/98 Blood Pressure Gosia n Blood Pressure Gosia n [Right Arm] 129 115 109 Blood Pressure Pos ition Pulse Oximetry 94 97 92 Oxygen Delivery Me thod Room Air Room Air Room Air Sepsis Recent Feve r Within 48 Hours Sepsis New/Unexpla ined Change in Men jud Status Sepsis Action Take n by Nursing Physical Exam: Physical Exam GENERAL: She is oriented to person, place, and time. She appears well-developed and well-nourished. She does not appear distressed. HENT: Exam performed. -Head: Normocephalic and atraumatic. -Right Ear: External ear normal. No mastoid erythema -Left Ear: External ear normal. No mastoid erythema -Mouth/Throat: The oropharynx is clear and moist. No trismus in the jaw. No dental abscesses or uvula swelling. No oropharyngeal exudate or tonsillar abscesses. EYES: Conjunctivae and EOM are normal.Right eye exhibits no discharge. Left eye exhibits no discharge. No scleral icterus. NECK: Normal range of motion. Neck supple. No JVD present. No tracheal deviation and normal range of motion present. CV: Normal rate, regular rhythm, normal heart sounds and intact distal pulses. There is no peripheral edema. Palpable radial pulses bue. PULM/CHEST: Effort normal and breath sounds normal. No respiratory distress. No stridor. She has no wheezes. She has no rales. -Chest Wall: She exhibits no tenderness. ABD: The abdomen is soft. Bowel sounds are normal. She has no distension. No mass is present. There is tenderness to palpation of the epigastric area. There is no rebound, no guarding, no Steiner's sign and no tenderness at McBurney's point. Rovsig negative MUSC/SKEL: Normal range of motion. There is no peripheral edema, tenderness or deformity. NEURO: Motor and sensation grossly intact. SKIN: Skin is warm and dry. She is not diaphoretic. PSYCH: She has a normal mood and affect. Behavior is normal. Judgment and thought content normal. Course Course 1812: The patient was evaluated in room A2. A complete history and physical exam was performed Cardiac monitoring: An order was placed for continuous cardiac monitoring. The monitor shows a rate of 100 with sinus rhythm interpreted by me 2204: Vital signs stable.Labs show white blood cell count of 26.07. D-dimer is elevated at 1640. Bilirubin is within normal limits at 0.5. Alkaline phosphatase 153. Troponin 22.5. Acute abdominal series x-ray shows no acute process in the chest and shows a distended loop of bowel within the upper abdomen which could represent a distended sigmoid colon or cecum measuring 18 cm in diameter. Radiology stated it could represent a cecal or sigmoid volvulus. Recommend a CT. CTA of the chest was conducted as well as CT of the abdomen pelvis. CTA of the chest showed no PE. CT abdomen pelvis showed a dilated common bile duct with enhancement of the wall concerning for ascending c holangitis. Clinically there is no concern for ascending cholangitis as patient has no fever and no elevated bilirubin level. There was a question of striated nephrograms concerning for acute pyelonephritis versus acute tubular necrosis. CT report does not mention any volvulus. I discussed the case with general surgery Angelo Lr on-call for Dr. Chucho Candelario. He states given that the patient has had a cholecystectomy there is no need for evaluation by them. Spoke with GI Dr. Arevalo who is on-call. I read the CT report verbatim to them when told the labs to them. I explained to them that clinically there is no concern for cholangitis as patient has no fever and no elevated bilirubin level. He states that the patient can be admitted and he can speak with Dr. Bill or other GI doctors in the morning to see if any ERCP procedure needs to be completed. He recommends antibiotics and admission to medicine. IV antibiotics ordered for the patient patient be admitted to the hospitalist team. Dr. Harrison's team notified. Administered Medications Sodium Chloride (Nss 1000ml) 1,000 mls @ 125 mls/hr IV .Q8H RODNEY Stop: 01/31/23 22:14 Last Admin: 01/01/23 22:20 Dose: 125 mls/hr Documented By: TAYLOR Discontinued Medications Sodium Chloride (Nss 1000ml) 500 mls @ 999 mls/hr IV .Q31M ONE Stop: 01/01/23 18:50 Last Infusion: 01/01/23 19:45 Dose: 0 mls/hr Documented By: Admin: 01/01/23 18:46 Dose: 999 mls/hr Documented By: CARY Ceftriaxone Sodium (Rocephin) 2,000 mg in 70 mls @ 140 mls/hr IV NOW STA Stop: 01/01/23 22:33 Last Infusion: 01/01/23 22:51 Dose: 0 mls/hr Documented By: Admin: 01/01/23 22:20 Dose: 140 mls/hr Documented By: TAYLOR Metronidazole (Flagyl) 500 mg in 100 mls @ 100 mls/hr IV NOW STA Stop: 01/01/23 23:03 Last Admin: 01/01/23 22:54 Dose: 100 mls/hr Documented By: TAYLOR Ioversol (Ioversol 350 Mg 125ml Prefilled Syringe) 116 ml IV ONCE ONE Stop: 01/01/23 20:33 Last Admin: 01/01/23 20:32 Dose: 116 ml Documented By: GINGER Morphine Sulfate (Morphine Sulfate 4 Mg/Ml 1 Ml Carp\Vial) 4 mg IV NOW STA Stop: 01/01/23 18:21 Last Admin: 01/01/23 18:46 Dose: 4 mg Documented By: CARY Morphine Sulfate (Morphine Sulfate 4 Mg/Ml 1 Ml Carp\Vial) 4 mg IV NOW STA Stop: 01/01/23 21:04 Last Admin: 01/01/23 21:07 Dose: 4 mg Documented By: TAYLOR Morphine Sulfate (Morphine Sulfate 4 Mg/Ml 1 Ml Carp\Vial) 4 mg IV NOW STA Stop: 01/01/23 22:12 Last Admin: 01/01/23 22:19 Dose: 4 mg Documented By: TAYLOR Ondansetron HCl (Ondansetron Inj 2 Mg/Ml 2 Ml Vial) 4 mg IV NOW STA Stop: 01/01/23 18:21 Last Admin: 01/01/23 18:46 Dose: 4 mg Documented By: CARY Medical Decision Making Laboratory Data Attestation: I reviewed the patient's lab results. 01/01/23 18:29 01/01/23 19:37 Lab Results 01/01/23 01/01/23 01/01/23 Range/Units 18:29 18:29 18:29 WBC 26.07 H (4.8-10.8) K/ul RBC 4.29 (4.20-5.40) M/uL Hgb 12.7 (12.0-16.0) g/dl POC Hgb (12.0-16.0) g/dl Hct 39.8 (37.0-47.0) % POC Hct (37-47) % MCV 92.8 (80.0-100.0) fL MCH 29.6 (25.0-34.0) pg MCHC 31.9 L (32.0-36.0) g/dL RDW Std Deviation 53.2 H (36.4-46.3) fL RDW Coeff of Nery 15.8 H (11.5-14.5) % Plt Count 531 H (130-400) K/uL MPV 8.6 L (9.4-12.4) fL Immature Gran % (Auto) 0.6 % Neut % (Auto) 85.3 % Lymph % (Auto) 8.6 % [place] % (Auto) 4.3 % Eos % (Auto) 0.9 % Baso % (Auto) 0.3 % Neut # (Auto) 22.26 H (1.40-6.50) K/uL Lymph # (Auto) 2.24 (1.20-3.40) K/uL [place] # (Auto) 1.12 H (0.11-0.59) K/uL Eos # (Auto) 0.23 (0.00-0.50) K/uL Baso # (Auto) 0.07 (0.00-0.20) K/uL Immature Gran # (Auto) 0.15 (0.01-0.20) K/uL Toxic Vacuolation 1+ Polychromasia 1+ Echinocytes 1+ PT 11.0 (9.0-12.0) Seconds INR 1.0 (0.9-1.1) APTT 27.7 (21.0-31.0) Seconds PTT Ratio 1.0 D-Dimer (0-500) ug/L FEU POC Sodium (135-144) mmol/L Sodium 133 L (136-145) mmol/L POC Potassium (3.3-5.0) mmol/L Potassium TNP POC Chloride (101-112) mmol/L Chloride 98 (98-107) mmol/L Carbon Dioxide 28 (21-32) mmol/L POC Total CO2 (24-31) mmol/L Anion Gap 7 (3-11) POC Anion Gap (16-25) mmol/L POC BUN (7-18) mg/dl BUN 16 (6-23) mg/dl Creatinine 0.74 (0.6-1.2) mg/dl POC Creatinine (0.6-1.3) mg/dl Est Cr Clr Drug Dosing 69.3 ml/min Est GFR ( Amer) 89.9 ml/min Est GFR (Non-Af Amer) 77.6 ml/min BUN/Creatinine Ratio 21.6 H (10-20) Glucose 118 H (70-99(Fasting)) mg/dl POC Glucose (other) (70-99) mg/dl Calcium 8.0 L (8.6-10.3) mg/dl POC Ioniz Calcium Mikie (1.12-1.32) mmol/l Total Bilirubin 0.5 (0.2-1.0) mg/dl Direct Bilirubin TNP AST TNP ALT 8 (7-52) U/L Alkaline Phosphatase 153 H (34-104) U/L Troponin I High Sens 22.5 H (0-14) pg/ml Total Protein 6.2 (6.0-8.3) gm/dl Albumin 2.5 L (3.4-5.0) gm/dl Lipase 22 (11-82) U/L 01/01/23 01/01/23 01/01/23 Range/Units 18:29 19:37 19:41 WBC (4.8-10.8) K/ul RBC (4.20-5.40) M/uL Hgb (12.0-16.0) g/dl POC Hgb 14.3 (12.0-16.0) g/dl Hct (37.0-47.0) % POC Hct 42 (37-47) % MCV (80.0-100.0) fL MCH (25.0-34.0) pg MCHC (32.0-36.0) g/dL RDW Std Deviation (36.4-46.3) fL RDW Coeff of Nery (11.5-14.5) % Plt Count (130-400) K/uL MPV (9.4-12.4) fL Immature Gran % (Auto) % Neut % (Auto) % Lymph % (Auto) % [place] % (Auto) % Eos % (Auto) % Baso % (Auto) % Neut # (Auto) (1.40-6.50) K/uL Lymph # (Auto) (1.20-3.40) K/uL [place] # (Auto) (0.11-0.59) K/uL Eos # (Auto) (0.00-0.50) K/uL Baso # (Auto) (0.00-0.20) K/uL Immature Gran # (Auto) (0.01-0.20) K/uL Toxic Vacuolation Polychromasia Echinocytes PT (9.0-12.0) Seconds INR (0.9-1.1) APTT (21.0-31.0) Seconds PTT Ratio D-Dimer 1640 H* (0-500) ug/L FEU POC Sodium 134 L (135-144) mmol/L Sodium (136-145) mmol/L POC Potassium 4.5 (3.3-5.0) mmol/L Potassium 4.6 POC Chloride 100 L (101-112) mmol/L Chloride (98-107) mmol/L Carbon Dioxide (21-32) mmol/L POC Total CO2 27 (24-31) mmol/L Anion Gap (3-11) POC Anion Gap 13.0 L (16-25) mmol/L POC BUN 17 (7-18) mg/dl BUN (6-23) mg/dl Creatinine (0.6-1.2) mg/dl POC Creatinine 0.8 (0.6-1.3) mg/dl Est Cr Clr Drug Dosing ml/min Est GFR ( Amer) ml/min Est GFR (Non-Af Amer) ml/min BUN/Creatinine Ratio (10-20) Glucose (70-99(Fasting)) mg/dl POC Glucose (other) 122 H (70-99) mg/dl Calcium (8.6-10.3) mg/dl POC Ioniz Calcium Mikie 1.07 L (1.12-1.32) mmol/l Total Bilirubin (0.2-1.0) mg/dl Direct Bilirubin AST ALT (7-52) U/L Alkaline Phosphatase (34-104) U/L Troponin I High Sens (0-14) pg/ml Total Protein (6.0-8.3) gm/dl Albumin (3.4-5.0) gm/dl Lipase (11-82) U/L Imaging Data Radiologist's Impression: Chest/Abdomen X-ray 01/01/23 18:20 CHEST AND ABDOMEN 2 VIEWS HISTORY: epigastric pain COMPARISON: Abdomen and pelvis CT 02/07/2019. Chest CT 12/18/2017. FINDINGS: No pneumothorax. No pleural effusions. There is elevation of the right hemidiaphragm. The lungs are clear. The heart is normal in size. Calcifications in the deep pelvis consistent with phleboliths. No definite renal or ureteral calculi. There is a distended loop of bowel within the upper abdomen. This could represent the distended sigmoid colon or cecum. This measures up to 18 cm in diameter. Moderate to large amount well-formed stool seen throughout the colon. No dilated loops of small bowel identified. IMPRESSION: 1. No acute process within the chest. 2. There is a distended loop of bowel within the upper abdomen. This could represent the distended sigmoid colon or cecum. This measures up to 18 cm in diameter. This is indeterminate but could represent a cecal or sigmoid volvulus in the appropriate clinical setting. A follow-up abdomen and pelvis CT can be performed for further evaluation. ACT 112: Negative or not required by law. Electronically signed by: Noel Ward M.D. 01/01/2023 7:27 PM Abdomen/Pelvis CT 01/01/23 19:43 Exam(s): CT ABDOMEN + PELVIS With Contrast IV Amt: 116 ml optiray 350 EXAM: CT Abdomen and Pelvis With Intravenous Contrast CLINICAL HISTORY: Epigastric pain. TECHNIQUE: Axial computed tomography images of the abdomen and pelvis with intravenous contrast. CTDI is 22.68 mGy and DLP is 1208.43 mGy-cm. Automated exposure control was utilized for the study. A dose lowering technique was utilized adhering to the principles of ALARA. CONTRAST: Patient received 116 ml optiray 350 of IV contrast COMPARISON: CT abdomen and pelvis 02/07/2019 FINDINGS: Lung bases: Unremarkable. No mass. No consolidation. ABDOMEN: Liver: Unremarkable. No mass. Gallbladder and bile ducts: Dilated common bile duct with enhancement of the wall. No calcified stones. Pancreas: There is stable marked fatty replacement of the pancreas. No ductal dilation. Spleen: Unremarkable. No splenomegaly. Adrenals: Unremarkable. No mass. Kidneys and ureters: Question striated nephrograms bilaterally which is concerning for acute tubular necrosis and/or acute pyelonephritis, clinical correlation is recommended. The kidneys demonstrate lobulation and/or cortical scarring. No hydronephrosis of either kidney. There is a simple appearing left renal cyst, no follow-up is needed. Stomach and bowel: Marked thickening of the descending and sigmoid colon is also noted in nonspecific. There is thickening of the proximal duodenum. Diverticulosis. No obstruction. PELVIS: Appendix: Normal appendix. Bladder: Unremarkable. No mass. Reproductive: Unremarkable as visualized. ABDOMEN and PELVIS: Intraperitoneal space: Unremarkable. No free air. No significant fluid collection. Bones/joints: There are degenerative changes of the spine. No acute fracture. No dislocation. Soft tissues: Unremarkable. Vasculature: Mild atherosclerosis. No abdominal aortic aneurysm. Lymph nodes: Unremarkable. No enlarged lymph nodes. IMPRESSION: 1. Dilated common bile duct with enhancement of the wall. This is concerning for ascending cholangitis. 2. Question striated nephrograms bilaterally which is concerning for acute tubular necrosis and/or acute pyelonephritis, clinical correlation is recommended. 3. Marked thickening of the descending and sigmoid colon is also noted in nonspecific. Correlation with colonoscopy is recommended as malignancy should be excluded. 4. There is thickening of the proximal duodenum. This is nonspecific and may be reactive, infectious or inflammatory. 5. There is stable marked fatty replacement of the pancreas. 6. Diverticulosis. Electronically signed by: Guerline Jung MD 01/01/23 21:24 PM Chest CTA 01/01/23 19:43 Exam(s): CTA CHEST IV Amt: 116 ml optiray 350 EXAM: CT Angiography Chest With Intravenous Contrast CLINICAL HISTORY: Pulmonary embolus. TECHNIQUE: Axial computed tomographic angiography images of the chest with intravenous contrast. CTDI is 23.66 mGy and DLP is 740.26 mGy-cm. Automated exposure control was utilized for the study. A dose lowering technique was utilized adhering to the principles of ALARA. MIP reconstructed images were created and reviewed. COMPARISON: CT chest 12/18/2017. FINDINGS: Pulmonary arteries: Unremarkable. No pulmonary embolus. Aorta: No acute findings. Mild atherosclerosis. No thoracic aortic aneurysm. Lungs: Interseptal thickening is concerning for pulmonary edema. No mass. Pleural space: Unremarkable. No significant effusion. No pneumothorax. Heart: Redemonstrated lipomatous hypertrophy of the intra-atrial septum. No significant pericardial effusion. No evidence of RV dysfunction. Bones/joints: There are degenerative changes of the spine. No acute fracture. No dislocation. Soft tissues: Unremarkable. Lymph nodes: A 1.4 cm AP window lymph node is nonspecific. IMPRESSION: 1. No pulmonary embolus. 2. Interseptal thickening is concerning for pulmonary edema. 3. Worsened lipomatous hypertrophy of the intra-atrial septum. 4. A 1.4 cm AP window lymph node is nonspecific, this may be infectious, inflammatory or neoplastic. Electronically signed by: Guerline Jung MD 01/01/23 21:40 PM [facility] Narrative 1813: The patient was evaluated in room A2. A complete history and physical exam was performed Cardiac monitoring: An order was placed for continuous cardiac monitoring. The monitor shows a rate of 100 with sinus rhythm interpreted by me Vital signs stable.Labs show white blood cell count of 26.07. D-dimer is elevated at 1640. Bilirubin is within normal limits at 0.5. Alkaline phosphatase 153. Troponin 22.5. Acute abdominal series x-ray shows no acute process in the chest and shows a distended loop of bowel within the upper abdomen which could represent a distended sigmoid colon or cecum measuring 18 cm in diameter. Radiology stated it could represent a cecal or sigmoid volvulus. Recommend a CT. CTA of the chest was conducted as well as CT of the abdomen pelvis. CTA of the chest showed no PE. CT abdomen pelvis showed a dilated common bile duct with enhancement of the wall concerning for ascending cholangitis. Clinically there is no concern for ascending cholangitis as anahi ent has no fever and no elevated bilirubin level. There was a question of striated nephrograms concerning for acute pyelonephritis versus acute tubular necrosis. CT report does not mention any volvulus. I discussed the case with general surgery Angelo Lr on-call for Dr. Chucho Candelario. He states given that the patient has had a cholecystectomy there is no need for evaluation by them. Spoke with GI Dr. Arevalo who is on-call. I read the CT report verbatim to them when told the labs to them. I explained to them that clinically there is no concern for cholangitis as patient has no fever and no elevated bilirubin level. He states that the patient can be admitted and he can speak with Dr. Bill or other GI doctors in the morning to see if any ERCP procedure needs to be completed. He recommends antibiotics and admission to medicine. IV antibiotics ordered for the patient patient be admitted to the hospitalist team. Dr. Harrison's team notified. Impression & Plan Dilated bile duct Discharge Plan Visit Data Chief Complaint: Illness Stated Complaint: UPPER GASTRIC PAIN ED Provider: Dusty Rasheed Discharge Problem: Dilated bile duct Patient Disposition: Admitted As Inpatient Forms Stand Alone Forms: My [facility] Prescriptions Prescriptions: No Action duloxetine 60 mg capsule,delayed release(DR/EC) 60 mg PO BID Qty: 180 3RF omeprazole 40 mg capsule,delayed release(DR/EC) 40 mg PO DAILY Qty: 90 3RF dicyclomine 10 mg capsule 10 mg PO DAILY PRN (Reason: abdominal discomfort) Qty: 90 2RF lovastatin 20 mg tablet 20 mg PO HS Qty: 90 3RF metoprolol succinate 25 mg tablet extended release 24 hr 25 mg PO HS Qty: 90 3RF quetiapine 200 mg tablet extended release 24 hr 200 mg PO DAILY Qty: 90 3RF fluticasone propionate 50 mcg/actuation spray,suspension 2 spray INTNAS DAILY Qty: 48 1RF Rx Instructions: administer into each nostril oxycodone-acetaminophen 7.5-325 mg tablet 1 tab PO TID PRN (Reason: pain) Qty: 90 0RF cyanocobalamin (vitamin B-12) 5,000 mcg Tablet,Disintegrating 5,000 mcg PO DAILY meloxicam 15 mg tablet 15 mg PO DAILY Rx Instructions: TAKE THIS MEDICNE WITH FOOD levothyroxine 137 mcg tablet 137 mcg PO DAILYBB tolterodine 4 mg capsule,extended release 24hr 4 mg PO DAILY multivitamin [Multiple Vitamin] Tablet 1 tab PO DAILY Referrals Referrals: Mitzi Camacho MD [Primary Care Provider] -
--- NOTE | 2023-01-02 00:20 | History & Physical Report ---
Date of Service January 02, 2023 Assessment & Plan (1) Dilated bile duct: Plan: 77 year old female w/ PmHx anemia, anxiety, depression, B12 deficiency, fibromyalgia, GERD, HLD, HTN, hypothyroidism, MGUS, urge and stress incontinence admitted for sepsis secondary to possible biliary or gastrointestinal source. Dilated Bile Duct: -Patient with nonspecific mid thoracic and upper abdominal pain. -T. bili 0.6, AST unable to be read, ALT 8, Alk phos 153. -CT A&P with dilated common bile duct w/ enhancement of wall concerning for ascending cholangitis. -Given Ceftriaxone x1 and Metronidazole x1 in the ED. -Will place on Zosyn instead to include enterococcal species with gram+, gram -, anaerobic coverage. -Consulted GI, appreciate recs. Will keep patient NPO in case need for ERCP. -Trend WBC with AM CBC. Dyspnea on exertion: -New dyspnea on exertion for patient. -EKG w/ T wave inversion in V1 and aVR, no ST depression or elevations. -Troponin 22.5 on admission. -Less likely cardiac in nature, may be due to orthostatic hypotension vs BPPV. -will obtain orthostatic vital signs. -Ordered echo to check for wall motion abnormalities. -Trend troponin. Bowel wall thickening: -CT A&P w/ marked thickening of descending & sigmoid colon as well as proximal duodenum. -May be gastroenteritis and may contribute to patient's presentation pain. -Will keep hydrated with fluid, D5+NSS at 80ml/hr. -NPO for possible ERCP. Anxiety/Depression: -continue home duloxetine. Fibromyalgia: -Continue home duloxetine, meloxicam HTN/HLD: -Continue home metoprolol, lovastatin. GERD: -Continue on PPI. Hypothyroidism: -Continue home levothyroxine. F/E/N/GI: NPO for possible ERCP DVT Prophylaxis: SCD Code status: Full however if after few rounds no resuscitation then cease resuscitation. Dispo: med/tele (2) Dyspnea on exertion: (3) Bowel wall thickening: (4) Anxiety: (5) Depression: (6) Fibromyalgia: (7) GERD (gastroesophageal reflux disease): (8) HLD (hyperlipidemia): (9) HTN (hypertension): (10) Hypothyroidism: (11) Anemia: History of Present Illness Chief Complaint: mid-thoracic and abdominal pain, SoB on exertion. Primary Care Provider: Mitzi Camacho MD Leora is a 77 year old female w/ PmHx anemia, anxiety, depression, B12 deficiency, fibromyalgia, GERD, HLD, HTN, hypothyroidism, MGUS, urge and stress incontinence coming in to the ED for mid back and abdominal pain as well as shortness of breath on exertion. Patient states that for the past week she's been having worsening mid thoracic pain as well as anterior upper abdominal pain. The pain is almost like a gas pain and doesn't radiate anywhere else. The pain had been worsening over the past 2 days which brought her in. She also says she's been having some slight dizziness when she's standing up and exacerbated with exertion. At time she's had chills but no recorded fevers. She also complains of constipation with not having defecated for about a week. She has had some nausea associated with this and states that she hasn't had the best diet over the past week, hasn't eaten too much and has drank a lot of soda. She denies any vomiting, changes to her muscle pains from fibromyalgia, chest pain, congestion, cough, urinary issues. In the ED WBC 26.07, hgb 12.7, D-dimer 1640, Na 133, Creatinine 0.74, troponin 22.5, lipase 22. CTA negative for PE, positive for interseptal thickening concerning for pulmonary edema, 1.4cm lymph node. CT A&P dilated common bile duct with enhancement of the wall concerning for ascending cholangitis, question striated nephrograms b/l concerning for ATN and/or acute pyelonephritis, marked thickening of descending & sigmoid colon as well as proximal duodenum. Patient was given NSS bolus 500cc, Morphine 4mg x3, ceftriaxone 2g x1 and metronidazole x1. Allergies Allergy/AdvReac Type Severity Reaction Status Date / Time Sulfa (Sulfonamide Allergy Unknown Verified 01/01/23 23:38 Antibiotics) ciprofloxacin [From Cipro] AdvReac Severe interferrs Verified 01/01/23 23:38 with her medications Home Medications Medication Instructions Recorded Confirmed Type duloxetine 60 mg capsule,delayed 60 mg PO BID #180 caps 10/19/21 01/06/23 Rx release omeprazole 40 mg capsule,delayed 40 mg PO DAILY #90 caps 01/04/22 01/06/23 Rx release dicyclomine 10 mg capsule 10 mg PO DAILY PRN abdominal 07/14/22 01/06/23 Rx discomfort #90 caps lovastatin 20 mg tablet 20 mg PO HS #90 tabs 11/02/22 01/06/23 Rx metoprolol succinate 25 mg 25 mg PO HS #90 tabs 11/02/22 01/06/23 Rx tablet,extended release 24 hr oxycodone-acetaminophen 7.5 mg-325 1 tab PO TID PRN pain #90 tabs 12/07/22 01/06/23 Rx mg tablet biotin 10,000 mcg chewable tablet 10,000 mcg PO DAILY 01/01/23 01/06/23 History (Hair, Skin and Nails (biotin)) cyanocobalamin (vitamin B-12) 5,000 mcg PO DAILY 01/01/23 01/06/23 History 5,000 mcg disintegrating tablet ginkgo biloba leaf extract 120 1 tab PO DAILY 01/01/23 01/06/23 History mg-choline bitartrate 110 mg tablet ([facility]) levothyroxine 137 mcg tablet 137 mcg PO DAILYBB 01/01/23 01/06/23 History meloxicam 15 mg tablet 15 mg PO DAILY 01/01/23 01/06/23 History multivitamin 1 tab PO DAILY 01/01/23 01/06/23 History tolterodine 4 mg capsule,extended 4 mg PO DAILY 01/01/23 01/06/23 History release 24 hr amoxicillin 875 mg-potassium 1 tab PO Q8H #15 tabs 01/05/23 01/06/23 Rx clavulanate 125 mg tablet calcitonin (salmon) 200 1 spray intranasal (ALT) DAILY 4 01/05/23 01/06/23 Rx unit/actuation nasal spray weeks #3.7 mL polyethylene glycol 3350 17 gram 17 g PO DAILY PRN constipation #30 01/05/23 01/06/23 Rx oral powder packet (Miralax) ea quetiapine 50 mg tablet,extended 100 mg PO HS #30 tabs 01/05/23 01/06/23 Rx release 24 hr (Seroquel XR) Past Med/Surg History Medical History Altered mental status Anemia Anxiety Arthritis B12 deficiency Chronic pain Cognitive impairment Depression Fibromyalgia GERD (gastroesophageal reflux disease) HLD (hyperlipidemia) HTN (hypertension) Hypothyroidism Insomnia MGUS (monoclonal gammopathy of unknown significance) Urge and stress incontinence Surgical History History of dental surgery History of knee replacement Hx of cholecystectomy Family History Mother Cancer Lung Lung cancer Father Lymphoma Aunt Breast cancer Denies family history of Ovarian cancer Prostate cancer Myocardial infarction Colorectal cancer Social History Smoking Status: Never smoker Second Hand Exposure: No; Do You Dip or Chew Tobacco: No; Hx Alcohol Use: No Hx Substance Use: No Preferred Language: Pakistani Communication Ability: Effective Visual Impairment: No Limitations Hearing Ability: Normal Shear Setter Required: No Beliefs That Will Affect Care: None marital status: Current Living Situation: Spouse current occupational status: retired Feels Safe at Home: Yes Childhood Exposure to Second-Hand Smoke: Yes Diet: regular Diet Comment: regular caffeine: Yes (soda) during the past year weight has: decreased > 10 lbs Dental Care, Regularly: Yes Physical Activity Frequency: 1-2 Times per Week Seatbelt Use: always Sunscreen Use: Yes Assistive Devices: Cane Review of Systems Review of Systems: As per HPI. Physical Exam Constitutional: WD/WN, vitals as above Eyes: PERRL, conjunctivae normal, anicteric sclerae ENMT: Patient constantly licking mouth during encounter as if mouth very dry. Respiratory: normal respiratory effort, lungs clear to auscultation Cardiovascular: Rate/Rhythm: + tachycardic Heart Sounds: normal S1 and normal S2 No peripheral extremity swelling. Gastrointestinal (Abdomen): normal bowel sounds, soft, nontender, no hepatosplenomegaly Musculoskeletal: Tenderness to palpation at the mid thoracic spine midline at the level of around T5, without tenderness laterally. Skin: no rashes, warm and dry Psychiatric: A+Ox3, euthymic affect Results & Data Results & Data Vital Signs (Past 12 Hours) Vital Signs Temp Pulse Pulse Resp BP BP Pulse Ox 01/01/23 22:24 108 H 01/01/23 23:00 106 H 20 133/98 92 01/01/23 22:01 109 H 18 164/91 H 97 01/01/23 20:49 103 H 20 187/101 H 94 01/01/23 18:38 108 H 01/01/23 18:22 01/01/23 18:22 37.0 C 110 H 20 173/96 H 97 O2 Del Method 01/01/23 22:24 01/01/23 23:00 Room Air 01/01/23 22:01 Room Air 01/01/23 20:49 Room Air 01/01/23 18:38 01/01/23 18:22 Room Air 01/01/23 18:22 Room Air Supervising Physician Co-Signing Physician Notes Attending addendum: I have physically seen this patient, have supervised the medical residents activities, and agree with the H&P unless as otherwise noted. Assessment and Plan: Abdominal pain- Multiple potential causes including but not limited to ascending cholangitis, acute pyelonephritis, duodenitis, pancreatitis, and descending/sigmoid colitis Zosyn 4.5 g IV every 8 hours N.p.o. Consult gastroenterology for possible ERCP. MRCP unable to be done this evening overnight Possible acute pyelonephritis- Follow urine culture and sensitivity Antibiotics as noted above IV fluids as noted Thickening of descending and sigmoid colon- Symptoms not as consistent with colitis, but remains in the diagnosis differential N.p.o. with treatment as above Proximal duodenum thickening and inflammation- Note agrees to get to consider EGD/ERCP Continue pantoprazole as noted IV Elevated troponin- Likely supply demand mismatch Follow serially in order echocardiogram Remaining orders and notations as noted Resident Activity Tracking Resident Involvement: Resident Care Provided Care Provided: [facility]
[2023-01-02] MEDS ORDERED: POLYETHYLENE (MIRALAX) 17 GM PACK PO PRN (02:03)
[2023-01-02] MEDS: D5W AND NSS 1,000 ML IV SCH ×2 (02:49→15:47)
[2023-01-02] MEDS: ACETAMINOPHEN 325 MG TAB PO PRN ×2 (03:19→08:41)
[2023-01-02 04:33] LABS: Basophils # (auto) 0.06 K/uL (0.00-0.20); Basophils % (auto) 0.3 %; Eosinophils # (auto) 0.25 K/uL (0.00-0.50); Eosinophils % (auto) 1.1 %; Hematocrit (blood only) 37.1 % (37.0-47.0); Hemoglobin 11.8 g/dl (12.0-16.0); Immature Granulocytes # (auto) 0.13 K/uL (0.01-0.20); Immature Granulocytes % (auto) 0.6 %; Lymphocytes # (auto) 2.54 K/uL (1.20-3.40); Lymphocytes % (auto) 10.9 %; Mean Corpuscular Hemoglobin 29.4 pg (25.0-34.0); Mean Corpuscular Hgb Conc 31.8 g/dL (32.0-36.0); Mean Corpuscular Volume 92.3 fL (80.0-100.0); Mean Platelet Volume 8.5 fL (9.4-12.4); Monocytes # (auto) 1.08 K/uL (0.11-0.59); Monocytes % (auto) 4.6 %; Neutrophils # (auto) 19.24 K/uL (1.40-6.50); Neutrophils % (auto) 82.5 %; Platelet Count 507 K/uL (130-400); RDW Coefficient of Variation 15.6 % (11.5-14.5); Red Blood Count 4.02 M/uL (4.20-5.40)
[2023-01-02 04:46] LABS: Albumin Level 2.4 gm/dl (3.4-5.0); BUN Creatinine Ratio 17.3 (10-20); Calcium 7.9 mg/dl (8.6-10.3); Creatinine Clr Calc Pharmacy 63.3 ml/min; Est GFR (African American) 80.6 ml/min; Est GFR (Non-African American) 69.6 ml/min; Phosphorus 3.1 mg/dl (2.5-4.9); Potassium 4.3 mmol/L (3.5-5.1)
[2023-01-02 04:52] LABS: Troponin I High Sensitivity 27.6 pg/ml (0-14)
[2023-01-02] MEDS: LEVOTHYROXINE SODIUM 137 MCG TABLET PO SCH (05:55)
[2023-01-02 07:57] LABS: Appearance Urine Clear (Clear); Bacteria Urine Automated 1+ (Negative); Bilirubin Urine Negative (Negative); Blood Urine Negative (Negative); Cast Urine Automated 0 /lpf (0-5); Color Urine Yellow; Epithelial Cell Urine Auto 0-5 /lpf (0-5); Glucose Urine UA Negative (Negative); Ketones Urine Negative (Negative); Leukocyte Esterase Urine 1+ (Negative); Nitrite Urine Positive (Negative); Protein Urine Negative (Negative); RBC Urine Automated 0-4 /hpf (0-4); Specific Gravity Urine 1.045 (1.000-1.030); Urobilinogen Urine Negative (Negative)
[2023-01-02] MEDS: MELOXICAM 7.5 MG TAB PO SCH ×2 (08:06→08:39)
--- NOTE | 2023-01-02 08:37 | Hospitalist Progress Note ---
Date of Service January 02, 2023 Assessment & Plan (1) Dilated bile duct: Plan: 77 year old female w/ PmHx anemia, anxiety, depression, B12 deficiency, fibromyalgia, GERD, HLD, HTN, hypothyroidism, MGUS, urge and stress incontinence admitted for sepsis secondary to possible biliary or gastrointestinal source. Dilated Bile Duct: -Patient with nonspecific mid thoracic and upper abdominal pain. - -CT A&P with dilated common bile duct w/ enhancement of wall concerning for ascending cholangitis. clinically however she was having discomfort in her lower abdomen -Given Ceftriaxone x1 and Metronidazole x1 in the ED. -Will place on Zosyn instead to include enterococcal species with gram+, gram -, anaerobic coverage. does have an abnormal urinalysis with nitrates leukocyte esterase seen on dip awaiting culture -Consulted GI, appreciate recs. patient able to have clear liquid diet Dyspnea on exertion: -New dyspnea on exertion for patient. -EKG w/ T wave inversion in V1 and aVR, no ST depression or elevations. -Troponin 22.5 on admission, 25 on recheck suspect demand ischemia and not acs. -Ordered echo to check for wall motion abnormalities. Bowel wall thickening: -CT A&P w/ marked thickening of descending & sigmoid colon as well as proximal duodenum. plain film comments on bowel distension and I interpreted right sided stool load -May be gastroenteritis and may contribute to patient's presentation pain. -Will keep hydrated with fluid, D5+NSS at 80ml/hr. -NPO for possible ERCP. Anxiety/Depression: -continue home duloxetine. Fibromyalgia: -Continue home duloxetine, meloxicam HTN/HLD: -Continue home metoprolol, lovastatin. GERD: -Continue on PPI. Hypothyroidism: -Continue home levothyroxine. DVT Prophylaxis: SCD Code status: Full however if after few rounds no resuscitation then cease resuscitation. Dispo: med/tele (2) Dyspnea on exertion: (3) Bowel wall thickening: (4) Anxiety: (5) Depression: (6) Fibromyalgia: (7) GERD (gastroesophageal reflux disease): (8) HLD (hyperlipidemia): (9) HTN (hypertension): (10) Hypothyroidism: (11) Anemia: Admission and Anticipated Discharge Date Admission Date: January 02, 2023 Subjective patient was still having occasional abdominal pain in the emergency department otherwise she was without nausea and feeling overall no worse but not much better Physical Exam Physical Exam: she is awake alert appropriate she is anicteric cardiac exam is regular lungs are clear abdomen with normal active bowel sounds however she has discomfort mostly in the bilateral lower quadrants. She has no right upper quadrant pain epigastric pain or left upper quadrant pain. She has no CVA angle tenderness. Results & Data Results & Data Vital Signs (Past 12 Hours) Vital Signs Temp Pulse Pulse Resp BP Pulse Ox Pulse Ox 01/02/23 08:00 01/02/23 08:00 99.1 F 97 H 18 118/85 97 01/02/23 05:00 100 H 16 123/101 H 97 01/02/23 04:13 95 01/02/23 04:00 98 H 18 165/93 H 98 01/02/23 02:00 117 H 18 186/92 H 96 01/01/23 22:24 108 H 01/01/23 23:00 106 H 20 133/98 92 01/01/23 22:01 109 H 18 164/91 H 97 01/01/23 20:49 103 H 20 187/101 H 94 O2 Del Method O2 Del Method 01/02/23 08:00 Room Air 01/02/23 08:00 Room Air 01/02/23 05:00 Room Air 01/02/23 04:13 Room Air 01/02/23 04:00 Room Air 01/02/23 02:00 Room Air 01/01/23 22:24 01/01/23 23:00 Room Air 01/01/23 22:01 Room Air 01/01/23 20:49 Room Air Laboratory Results Reviewed CBC reviewed chemistry reviewed coagulation studies PG Care Time/CCT Total # of Minutes Spent Total Time Spent with Patient: Total time spent is greater than 50% in coordination of care (as documented) at patient's floor/unit and/or counseling patient: Coding Level of Care Code 42894 SUB INP/OBS CARE 3/50MIN Diagnoses Dilated bile duct K83.8 Dyspnea on exertion R06.09 Bowel wall thickening K63.9 Anxiety F41.9 Depression F32.9 Fibromyalgia M79.7 GERD (gastroesophageal reflux disease) K21.9 HLD (hyperlipidemia) E78.5 HTN (hypertension) I10 Hypothyroidism E03.9 Anemia D64.9
[2023-01-02] MEDS: OXYBUTYNIN CHLORIDE XL 5 MG TABCR PO SCH (08:39)
[2023-01-02] MEDS: DULoxetine HCL 60 MG CAP PO SCH ×2 (08:40→20:01)
[2023-01-02] MEDS ORDERED: Nursing to Pharmacy Communication SCH (08:45)
[2023-01-02] MEDS ORDERED: QUEtiapine FUMARATE 200 MG TABCR PO SCH (09:00)
[2023-01-02] MEDS: MoRPHine SULFATE 4 MG/ML 1 ML CARP\\VIAL IV PRN ×3 (11:21→19:57)
[2023-01-02] MEDS: metroNIDAZOLE 500 MG/100 ML BAG IV SCH ×2 (12:56→19:53)
--- NOTE | 2023-01-02 14:11 | Gastrointestinal Consultation ---
Date of Consultation January 02, 2023 Assessment & Plan (1) Dilated bile duct: (2) Bowel wall thickening: Plan dilated bile duct on imaging and possible cholangitis; thickening of left colon recs: --obtain MRCP to further evaluate --abx for possible cholangitis --consider outpatient colonoscopy for workup of left colon thickening --supportive care, IVFs Thank you for allowing me to participate in the care of this patient. History of Present Illness Attending Physician: Ovidio Che MD History of Present Illness 77 year old female with hx anxiety, GERD, MGUS, anemia here with mid back and abdominal pains and dyspnea on exertion. GI consulted for possible ascending cholangitis on CT imaging. She does have a leukocytosis and is s/p CCY in the past. Notes her abdominal pains have resolved but still has back pain currently. afebrile, bilirubin normal. CBD was noted to be dilated on CT, no evidence of gallstones. also thickening of left colon noted. labs reviewed. Allergies Allergy/AdvReac Type Severity Reaction Status Date / Time Sulfa (Sulfonamide Allergy Unknown Verified 01/01/23 23:38 Antibiotics) ciprofloxacin [From Cipro] AdvReac Severe interferrs Verified 01/01/23 23:38 with her medications Home Medications Medication Instructions Recorded Confirmed Type duloxetine 60 mg capsule,delayed 60 mg PO BID #180 caps 10/19/21 01/01/23 Rx release omeprazole 40 mg capsule,delayed 40 mg PO DAILY #90 caps 01/04/22 01/01/23 Rx release dicyclomine 10 mg capsule 10 mg PO DAILY PRN abdominal 07/14/22 01/01/23 Rx discomfort #90 caps lovastatin 20 mg tablet 20 mg PO HS #90 tabs 11/02/22 01/01/23 Rx metoprolol succinate 25 mg 25 mg PO HS #90 tabs 11/02/22 01/01/23 Rx tablet,extended release 24 hr quetiapine 200 mg tablet,extended 200 mg PO DAILY #90 tabs 11/02/22 01/01/23 Rx release 24 hr oxycodone-acetaminophen 7.5 mg-325 1 tab PO TID PRN pain #90 tabs 12/07/22 01/01/23 Rx mg tablet biotin 10,000 mcg chewable tablet 10,000 mcg PO DAILY 01/01/23 01/01/23 History (Hair, Skin and Nails (biotin)) cyanocobalamin (vitamin B-12) 5,000 mcg PO DAILY 01/01/23 01/01/23 History 5,000 mcg disintegrating tablet ginkgo biloba leaf extract 120 1 tab PO DAILY 01/01/23 01/01/23 History mg-choline bitartrate 110 mg tablet ([facility]) levothyroxine 137 mcg tablet 137 mcg PO DAILYBB 01/01/23 01/01/23 History meloxicam 15 mg tablet 15 mg PO DAILY 01/01/23 01/01/23 History multivitamin 1 tab PO DAILY 01/01/23 01/01/23 History tolterodine 4 mg capsule,extended 4 mg PO DAILY 01/01/23 01/01/23 History release 24 hr Patient History Medical History Altered mental status Anemia Anxiety Arthritis B12 deficiency Chronic pain Cognitive impairment Depression Fibromyalgia GERD (gastroesophageal reflux disease) HLD (hyperlipidemia) HTN (hypertension) Hypothyroidism Insomnia MGUS (monoclonal gammopathy of unknown significance) Urge and stress incontinence Surgical History History of dental surgery History of knee replacement Hx of cholecystectomy Family History Mother Cancer Lung Lung cancer Father Lymphoma Aunt Breast cancer Denies family history of Ovarian cancer Prostate cancer Myocardial infarction Colorectal cancer Social History Smoking Status: Never smoker Second Hand Exposure: No; Do You Dip or Chew Tobacco: No; Hx Alcohol Use: No Hx Substance Use: No Preferred Language: Russian Communication Ability: Effective Visual Impairment: No Limitations Hearing Ability: Normal Weeder Thinner Required: No Beliefs That Will Affect Care: None marital status: Current Living Situation: Spouse current occupational status: retired Other Information That Helps Us Care for You: No Feels Safe at Home: Yes Safety Concerns: Feels Safe At This Time Childhood Exposure to Second-Hand Smoke: Yes Diet: regular Diet Comment: regular caffeine: Yes (soda) during the past year weight has: decreased > 10 lbs Dental Care, Regularly: Yes Physical Activity Frequency: 1-2 Times per Week Seatbelt Use: always Sunscreen Use: Yes Assistive Devices: Cane Review of Systems Constitutional: no fever, no chills and no weight loss Eyes: as per Subjective / HPI Ear, Nose, Mouth, Throat: as per Subjective / HPI Respiratory: no dyspnea and no dyspnea on exertion Cardiovascular: no chest pain and no palpitations Gastrointestinal: as per Subjective / HPI Musculoskeletal: no joint pain and no swelling Integumentary: no rash and no lesions Neurologic: no numbness and no paresthesia Psychiatric: no depression and no anxiety Endocrine: no fatigue Hematologic / Lymphatic: no easy bleeding and no easy bruising Physical Exam Constitutional: WD/WN, vitals as above Eyes: EOM intact bilaterally Neck: normal visual inspection Respiratory: normal respiratory effort, lungs clear to auscultation Cardiovascular: RRR, no murmur, no edema Gastrointestinal (Abdomen): Inspection/Auscultation: abdomen normal to inspection; abdomen not distended Percussion/Palpation: abdomen soft; abdomen nontender and no hepatosplenomegaly Musculoskeletal: Head/Neck/Chest: normocephalic and head atraumatic Extremities: no cyanosis Skin: no rashes, warm and dry Neurologic: moves all extremities Psychiatric: Orientation: alert and cooperative Affect: euthymic affect Results & Data Vital Signs (Past 12 Hours) Vital Signs Temp Pulse Resp BP Pulse Ox Pulse Ox O2 Del Method 01/02/23 11:23 37.4 C 94 H 20 169/85 H 94 Room Air 01/02/23 08:00 01/02/23 08:00 37.3 C 97 H 18 118/85 97 Room Air 01/02/23 05:00 100 H 16 123/101 H 97 Room Air 01/02/23 04:13 95 01/02/23 04:00 98 H 18 165/93 H 98 Room Air O2 Del Method 01/02/23 11:23 01/02/23 08:00 Room Air 01/02/23 08:00 01/02/23 05:00 01/02/23 04:13 Room Air 01/02/23 04:00 PG Care Time/CCT Total # of Minutes Spent Total Time Spent with Patient: Total time spent is greater than 50% in coordination of care (as documented) at patient's floor/unit and/or counseling patient: Coding Level of Care Code 79255 INT INP/OBS CARE 3/75MIN Diagnoses Dilated bile duct K83.8 Bowel wall thickening K63.9
--- NOTE | 2023-01-02 15:35 | XCELERA ---
[id number] [id number]
[2023-01-02] MEDS: METOPROLOL SUCC 25MG EXT REL TAB PO SCH (20:01)
[2023-01-02] MEDS: LOVASTATIN 20 MG TAB PO SCH (20:01)
[2023-01-02] MEDS: QUEtiapine FUMARATE 200 MG TABCR PO SCH (20:01)
[2023-01-02] MEDS: cefTRIAXone SODIUM 2,000 MG in DEXTROSE 5% 50 ML IV SCH (21:03)
--- NOTE | 2023-01-02 23:28 | Electrocardiogram Report ---
Test Reason : Blood Pressure : / mmHG Vent. Rate : 108 BPM Atrial Rate : 108 BPM P-R Int : 184 ms QRS Dur : 094 ms QT Int : 338 ms P-R-T Axes : 075 065 250 degrees QTc Int : 452 ms Sinus tachycardia Possible Left atrial enlargement Possible Inferior infarct , age undetermined Nonspecific T wave abnormality Abnormal ECG When compared with ECG of 18-DEC-2017 23:13, T wave inversion no longer evident in Lateral leads Confirmed by Gilberto Calderon ([id number]) on 01/02/2023 11:28:26 PM Referred By: REFERRED SELF Confirmed By:Gilberto Calderon
[2023-01-03] MEDS: MoRPHine SULFATE 4 MG/ML 1 ML CARP\\VIAL IV PRN ×2 (02:04→16:41)
[2023-01-03] MEDS ORDERED: Nursing to Pharmacy Communication SCH (02:15)
[2023-01-03] MEDS: metroNIDAZOLE 500 MG/100 ML BAG IV SCH ×3 (03:02→20:19)
--- NOTE | 2023-01-03 05:08 | Magnetic Resonance Report ---
Exam(s): MRI MRCP EXAM: MR Abdomen Without Intravenous Contrast, MRCP Protocol CLINICAL HISTORY: Reason for exam: eval for cholangitis changes. TECHNIQUE: Multiplanar magnetic resonance images of the abdomen without intravenous contrast using MRCP protocol. COMPARISON: Reference is made to prior CT dated 01/01/2023 FINDINGS: Pericardial effusion. Extensive fatty replacement of the pancreas. Postoperative changes prior cholecystectomy. Common bile duct is within normal limits. No intrahepatic biliary ductal dilatation. No evidence of biliary stricture present. IMPRESSION: Postoperative changes prior cholecystectomy Intra-and extra hepatic biliary ducts are within normal limits. Extensive fatty replacement of the pancreas. Electronically signed by: Grady Gupta MD 01/03/23 05:07 AM
[2023-01-03] MEDS: LEVOTHYROXINE SODIUM 137 MCG TABLET PO SCH (05:49)
[2023-01-03] MEDS: D5W AND NSS 1,000 ML IV SCH (06:30)
--- NOTE | 2023-01-03 07:02 | Hospitalist Progress Note ---
Date of Service January 03, 2023 Assessment & Plan (1) Dilated bile duct: Plan: 77 year old female w/ PmHx anemia, anxiety, depression, B12 deficiency, fibromyalgia, GERD, HLD, HTN, hypothyroidism, MGUS, urge and stress incontinence admitted for sepsis secondary to possible biliary or gastrointestinal source. Dilated Bile Duct: -Patient with nonspecific mid thoracic and upper abdominal pain. - -CT A&P with dilated common bile duct w/ enhancement of wall concerning for ascending cholangitis. clinically however she was having discomfort in her lower abdomen MRCP did not appreciate significant changes in the common bile duct to art borate cholangitis. -Given Ceftriaxone x1 and Metronidazole x1 in the ED. -Continues on Zosyn therapy with reduction of white count by 50% alternatives could be urinary tract infection, additional imaging changes or thickening of the sigmoid colon and also in the duodenum which could be inflammation in those areas but recommending colonoscopy to evaluate the duodenum. Additionally CTA of the chest did not show PE but was concern for pulmonary enlarged lymph node which would require also follow-up imaging in the future -Consulted GI, recommending follow-up with outpatient colonoscopy at time of discharge Dyspnea on exertion: -New dyspnea on exertion for patient. Patient is not previously a smoker -EKG w/ T wave inversion in V1 and aVR, no ST depression or elevations. -Troponin 22.5 on admission, 25 on recheck suspect demand ischemia and not acs. -Echocardiogram showed preserved ejection fraction no regional wall motion abnormalities no significant valvular abnormalities Bowel wall thickening: -CT A&P w/ marked thickening of descending & sigmoid colon as well as proximal duodenum. plain film comments on bowel distension and I interpreted right sided stool load -May be gastroenteritis/stercoral colitis and may contribute to patient's presentation pain. Use cathartic agents to to assure stool production Anxiety/Depression: -continue home duloxetine. Fibromyalgia: -Continue home duloxetine, meloxicam HTN/HLD: -Continue home metoprolol, lovastatin. GERD: -Continue on PPI. Hypothyroidism: -Continue home levothyroxine. DVT Prophylaxis: SCD Code status: Full however if after few rounds no resuscitation then cease resuscitation. (2) Dyspnea on exertion: (3) Bowel wall thickening: (4) Anxiety: (5) Depression: (6) Fibromyalgia: (7) GERD (gastroesophageal reflux disease): (8) HLD (hyperlipidemia): (9) HTN (hypertension): (10) Hypothyroidism: (11) Anemia: Admission and Anticipated Discharge Date Admission Date: January 02, 2023 Subjective Patient still with some minor abdominal pain and she feels short of breath. She is however hungry and wishing to advance her diet. Patient has difficult to determine picture as she had initial concern for cholangitis with now less impressive MRCP findings to corroborate that. She however did have defervescent's of her leukocytosis with antibiotics from 26,000-13,000. There were other comments on her initial CT scan of possible urinary involvement and the patient subjectively feels she may have pulmonary involvement although defined pneumonia was not seen (this was even with CT angiography) Physical Exam Physical Exam: Awake alert appropriate. Patient claims to be dyspneic Pulm examination is decreased at the bases but otherwise unremarkable. Card exam is regular Abdominal exam shows NABS soft she is uncomfortable to examination in the lower quadrants but there is no organomegaly or bilateral upper quadrant epigastric discomfort on exam Results & Data Results & Data Vital Signs (Past 12 Hours) Vital Signs Temp Pulse Pulse Resp BP Pulse Ox O2 Del Method 01/03/23 02:51 98.4 F 79 18 136/68 93 Room Air 01/02/23 22:01 82 01/02/23 23:12 97.9 F 82 18 123/76 95 Room Air 01/02/23 19:47 94 H 01/02/23 21:54 Room Air 01/02/23 19:59 98.2 F 93 H 16 173/74 H 99 Room Air Laboratory Results Normal CBC normal chemistry PG Care Time/CCT Total # of Minutes Spent Total Time Spent with Patient: Total time spent is greater than 50% in coordination of care (as documented) at patient's floor/unit and/or counseling patient: Coding Level of Care Code 93455 SUB INP/OBS CARE 3/50MIN Diagnoses Dilated bile duct K83.8 Dyspnea on exertion R06.09 Bowel wall thickening K63.9 Anxiety F41.9 Depression F32.9 Fibromyalgia M79.7 GERD (gastroesophageal reflux disease) K21.9 HLD (hyperlipidemia) E78.5 HTN (hypertension) I10 Hypothyroidism E03.9 Anemia D64.9
[2023-01-03] MEDS: OXYBUTYNIN CHLORIDE XL 5 MG TABCR PO SCH (08:55)
[2023-01-03 08:56] LABS: Basophils # (auto) 0.06 K/uL (0.00-0.20); Basophils % (auto) 0.5 %; Eosinophils % (auto) 1.5 %; Hematocrit (blood only) 30.7 % (37.0-47.0); Hemoglobin 9.5 g/dl (12.0-16.0); Immature Granulocytes # (auto) 0.05 K/uL (0.01-0.20); Immature Granulocytes % (auto) 0.4 %; Lymphocytes # (auto) 1.64 K/uL (1.20-3.40); Lymphocytes % (auto) 12.5 %; Mean Corpuscular Hemoglobin 29.1 pg (25.0-34.0); Mean Corpuscular Hgb Conc 30.9 g/dL (32.0-36.0); Mean Corpuscular Volume 94.2 fL (80.0-100.0); Mean Platelet Volume 8.6 fL (9.4-12.4); Monocytes # (auto) 0.65 K/uL (0.11-0.59); Monocytes % (auto) 4.9 %; Neutrophils # (auto) 10.54 K/uL (1.40-6.50); Neutrophils % (auto) 80.2 %; Platelet Count 365 K/uL (130-400); RDW Coefficient of Variation 15.5 % (11.5-14.5); RDW Standard Deviation 53.8 fL (36.4-46.3); Red Blood Count 3.26 M/uL (4.20-5.40); White Blood Count 13.14 K/ul (4.8-10.8)
[2023-01-03] MEDS: DULoxetine HCL 60 MG CAP PO SCH ×2 (08:56→20:20)
[2023-01-03] MEDS: MELOXICAM 7.5 MG TAB PO SCH (08:56)
[2023-01-03 09:54] LABS: Albumin Level 2.1 gm/dl (3.4-5.0); BUN Creatinine Ratio 13.7 (10-20); Calcium 7.4 mg/dl (8.6-10.3); Creatinine Clr Calc Pharmacy 70.2 ml/min; Est GFR (African American) 91.4 ml/min; Est GFR (Non-African American) 78.9 ml/min; Phosphorus 3.3 mg/dl (2.5-4.9); Potassium 3.1 mmol/L (3.5-5.1)
[2023-01-03] MEDS ORDERED: POTASSIUM CHLORIDE 20 MEQ/15 ML UDC PO STA (15:21)
[2023-01-03] MEDS ORDERED: POLYETHYLENE (MIRALAX) 17 GM PACK PO ONE (15:27)
--- NOTE | 2023-01-03 15:30 | Hospitalist Progress Note ---
Date of Service January 03, 2023 Assessment & Plan (1) Dilated bile duct: Plan: 77 year old female w/ PmHx anemia, anxiety, depression, B12 deficiency, fibromyalgia, GERD, HLD, HTN, hypothyroidism, MGUS, urge and stress incontinence admitted for sepsis secondary to possible biliary or gastrointestinal source. Dilated Bile Duct: -Patient with nonspecific mid thoracic and upper abdominal pain. - -CT A&P with dilated common bile duct w/ enhancement of wall concerning for ascending cholangitis. clinically however she was having discomfort in her lower abdomen MRCP did not appreciate significant changes in the common bile duct to art borate cholangitis. -Given Ceftriaxone x1 and Metronidazole x1, continued after admission with reduction of white count by 50% alternatives could be urinary tract infection, additional imaging changes or thickening of the sigmoid colon and also in the duodenum which could be inflammation in those areas but recommending colonoscopy to evaluate the duodenum. Additionally CTA of the chest did not show PE but was concern for pulmonary enlarged lymph node which would require also follow-up imaging in the future -Consulted GI, recommending follow-up with outpatient colonoscopy at time of discharge Dyspnea on exertion: -New dyspnea on exertion for patient. Patient is not previously a smoker -EKG w/ T wave inversion in V1 and aVR, no ST depression or elevations. -Troponin 22.5 on admission, 25 on recheck suspect demand ischemia and not acs. -Echocardiogram showed preserved ejection fraction no regional wall motion abnormalities no significant valvular abnormalities Hemoglobin is 9.5 this likely will not contribute to her subjective dyspnea at this time Bowel wall thickening: -CT A&P w/ marked thickening of descending & sigmoid colon as well as proximal duodenum. plain film comments on bowel distension and I interpreted right sided stool load -May be gastroenteritis/stercoral colitis and may contribute to patient's presentation pain. Use cathartic agents to to assure stool production Anxiety/Depression: -continue home duloxetine. Fibromyalgia: -Continue home duloxetine, meloxicam HTN/HLD: -Continue home metoprolol, lovastatin. GERD: -Continue on PPI. Hypothyroidism: -Continue home levothyroxine. DVT Prophylaxis: SCD Code status: Full however if after few rounds no resuscitation then cease resuscitation. Admission and Anticipated Discharge Date Admission Date: January 02, 2023 Subjective Patient still with some minor abdominal pain and she feels short of breath. She is however hungry and wishing to advance her diet. Patient has difficult to determine picture as she had initial concern for cholangitis with now less impressive MRCP findings to corroborate that. She however did have defervescent's of her leukocytosis with antibiotics from 26,000-13,000. There were other comments on her initial CT scan of possible urinary involvement and the patient subjectively feels she may have pulmonary involvement although defined pneumonia was not seen (this was even with CT angiography) Physical Exam Physical Exam: Awake alert appropriate. Patient claims to be dyspneic Pulm examination is decreased at the bases but otherwise unremarkable. Card exam is regular Abdominal exam shows NABS soft she is uncomfortable to examination in the lower quadrants but there is no organomegaly or bilateral upper quadrant epigastric discomfort on exam Results & Data Results & Data Vital Signs (Past 12 Hours) Vital Signs Temp Pulse Pulse Resp BP Pulse Ox O2 Del Method 01/03/23 11:17 97.9 F 73 18 106/62 95 Room Air 01/03/23 08:00 Room Air 01/03/23 07:31 98.6 F 75 16 108/65 95 Room Air 01/03/23 07:20 73 PG Care Time/CCT Total # of Minutes Spent Total Time Spent with Patient: Total time spent is greater than 50% in coordination of care (as documented) at patient's floor/unit and/or counseling patient: Coding Level of Care Code None Diagnoses Dilated bile duct K83.8
[2023-01-03] MEDS: METOPROLOL SUCC 25MG EXT REL TAB PO SCH (20:20)
[2023-01-03] MEDS: LOVASTATIN 20 MG TAB PO SCH (20:20)
[2023-01-03] MEDS: QUEtiapine FUMARATE 200 MG TABCR PO SCH (20:21)
[2023-01-03] MEDS: POTASSIUM CHLORIDE CRTAB 20 MEQ TABCR PO SCH (20:21)
[2023-01-03] MEDS: cefTRIAXone SODIUM 2,000 MG in DEXTROSE 5% 50 ML IV SCH (21:10)
[2023-01-03] MEDS: MoRPHine SULFATE 2 MG/ML CARP IV PRN (21:14)
[2023-01-04] MEDS: metroNIDAZOLE 500 MG/100 ML BAG IV SCH ×3 (04:37→20:26)
[2023-01-04] MEDS: MoRPHine SULFATE 4 MG/ML 1 ML CARP\\VIAL IV PRN (04:37)
[2023-01-04] MEDS: LEVOTHYROXINE SODIUM 137 MCG TABLET PO SCH (05:36)
[2023-01-04] MEDS: ONDANSETRON INJ 2 MG/ML 2 ML VIAL IV PRN (05:36)
[2023-01-04] MEDS: DULoxetine HCL 60 MG CAP PO SCH (08:20)
[2023-01-04] MEDS: MELOXICAM 7.5 MG TAB PO SCH (08:20)
[2023-01-04] MEDS: OXYBUTYNIN CHLORIDE XL 5 MG TABCR PO SCH (08:20)
[2023-01-04] MEDS: POTASSIUM CHLORIDE CRTAB 20 MEQ TABCR PO SCH ×2 (08:21→20:26)
--- NOTE | 2023-01-04 08:25 | Hospitalist Progress Note ---
Date of Service January 04, 2023 Assessment & Plan (1) Dilated bile duct: Plan: 77 year old female w/ PmHx anemia, anxiety, depression, B12 deficiency, fibromyalgia, GERD, HLD, HTN, hypothyroidism, MGUS, urge and stress incontinence admitted for sepsis secondary to possible biliary or gastrointestinal source. Dilated Bile Duct: -Treated for cholangitis improving clinically continue ceftriaxone and metronidazole for 1 week - -CT A&P with dilated common bile duct w/ enhancement of wall concerning for ascending cholangitis. clinically however she was having discomfort in her lower abdomen MRCP did not appreciate significant changes in the common bile duct to corroborate cholangitis. -Consulted GI for the thickening of the sigmoid colon, recommending follow-up with outpatient colonoscopy at time of discharge - CTA of the chest did not show PE but was concern for pulmonary enlarged lymph node which would require also follow-up imaging in the future Dyspnea on exertion: -New dyspnea on exertion for patient. Patient is not previously a smoker improving as patient recovers from initial infection -EKG w/ T wave inversion in V1 and aVR, no ST depression or elevations. -Troponin 22.5 on admission, 25 on recheck suspect demand ischemia and not acs. -Echocardiogram showed preserved ejection fraction no regional wall motion abnormalities no significant valvular abnormalities Hemoglobin is 9.5 this likely will not contribute to her subjective dyspnea at this time Bowel wall thickening: -CT A&P w/ marked thickening of descending & sigmoid colon as well as proximal duodenum. plain film comments on bowel distension and I interpreted right sided stool load -May be gastroenteritis/stercoral colitis and may contribute to patient's presentation pain. Use cathartic agents to to assure stool production Anxiety/Depression: -continue home duloxetine. Patient also on quetiapine dose 200 at bedtime reduce this dose to 100 to see if this is effects on her dizziness Fibromyalgia: -Continue home duloxetine, meloxicam duloxetine doses little efficacy once greater than 60 because of complaints of dizziness will reduce dose back to 60 HTN/HLD: -Continue home metoprolol, lovastatin. Patient's lipids have been favorable in the past will hold lovastatin at this time GERD: -Continue on PPI. Hypothyroidism: -Continue home levothyroxine. DVT Prophylaxis: Enoxaparin Code status: Full however if after few rounds no resuscitation then cease resuscitation. Plan Patient also has back pain if it persist consider x-ray evaluation for compression fractures Admission and Anticipated Discharge Date Admission Date: January 02, 2023 Subjective Patient is returning to her baseline she has issues with chronic dizziness at times. We will check orthostatics in the morning and try to reduce some polypharmacy but she is on being on high doses of Cymbalta and quetiapine. Patient will GHANSHYAM hose for swelling we may pursue x-ray of her back for compression fractures of continues to be painful on 01/05/23 Physical Exam Physical Exam: Awake alert appropriate. Dyspnea has resolved no carotid bruits Pulm examination is decreased at the bases but otherwise unremarkable. Card exam is regular Abdominal exam shows NABS soft she is uncomfortable to examination in the lower quadrants but there is no organomegaly or bilateral upper quadrant epigastric discomfort on exam Results & Data Results & Data Vital Signs (Past 12 Hours) Vital Signs Temp Pulse Pulse Resp BP Pulse Ox O2 Del Method 01/04/23 07:53 99.1 F 88 17 106/61 93 Room Air 01/04/23 07:17 89 01/04/23 02:36 97.9 F 88 16 115/69 95 Room Air 01/03/23 23:00 98.4 F 89 18 109/67 98 Room Air 01/03/23 23:16 87 01/03/23 22:34 Room Air Laboratory Results Reviewed CBC Reviewed chemistry PG Care Time/CCT Total # of Minutes Spent Total Time Spent with Patient: Total time spent is greater than 50% in coordination of care (as documented) at patient's floor/unit and/or counseling patient: Coding Level of Care Code 05225 SUB INP/OBS CARE 3/50MIN Diagnoses Dilated bile duct K83.8
[2023-01-04 09:45] LABS: Basophils # (auto) 0.05 K/uL (0.00-0.20); Basophils % (auto) 0.5 %; Eosinophils # (auto) 0.13 K/uL (0.00-0.50); Eosinophils % (auto) 1.2 %; Hematocrit (blood only) 30.5 % (37.0-47.0); Hemoglobin 9.6 g/dl (12.0-16.0); Immature Granulocytes # (auto) 0.06 K/uL (0.01-0.20); Immature Granulocytes % (auto) 0.5 %; Lymphocytes # (auto) 1.54 K/uL (1.20-3.40); Lymphocytes % (auto) 14.1 %; Mean Corpuscular Hgb Conc 31.5 g/dL (32.0-36.0); Mean Corpuscular Volume 92.1 fL (80.0-100.0); Mean Platelet Volume 8.3 fL (9.4-12.4); Monocytes # (auto) 0.58 K/uL (0.11-0.59); Monocytes % (auto) 5.3 %; Neutrophils # (auto) 8.56 K/uL (1.40-6.50); Neutrophils % (auto) 78.4 %; Platelet Count 365 K/uL (130-400); RDW Coefficient of Variation 15.3 % (11.5-14.5); RDW Standard Deviation 51.4 fL (36.4-46.3); Red Blood Count 3.31 M/uL (4.20-5.40); White Blood Count 10.92 K/ul (4.8-10.8)
[2023-01-04] MEDS: MoRPHine SULFATE 2 MG/ML CARP IV PRN (10:19)
[2023-01-04 10:47] LABS: BUN Creatinine Ratio 11.6 (10-20); Calcium 7.9 mg/dl (8.6-10.3); Creatinine Clr Calc Pharmacy 75.2 ml/min; Est GFR (African American) 96.6 ml/min; Est GFR (Non-African American) 83.4 ml/min; Magnesium 1.8 mg/dl (1.7-2.4); Potassium 3.9 mmol/L (3.5-5.1)
[2023-01-04] MEDS: ALUMINUM/MAGNESIUM SUSP 30 ML UDC PO PRN ×2 (10:51→21:29)
[2023-01-04] MEDS: PANTOprazole 40 MG TAB PO SCH ×2 (11:25→20:26)
[2023-01-04] MEDS ORDERED: ENOXAPARIN INJ 40 MG/0.4 ML SYR SQ SCH (19:00)
[2023-01-04] MEDS: METOPROLOL SUCC 25MG EXT REL TAB PO SCH (20:26)
[2023-01-04] MEDS ORDERED: QUEtiapine FUMARATE 50 MG TABCR PO SCH (21:00)
[2023-01-04] MEDS: cefTRIAXone SODIUM 2,000 MG in DEXTROSE 5% 50 ML IV SCH (21:29)
[2023-01-05] MEDS: MoRPHine SULFATE 2 MG/ML CARP IV PRN ×3 (02:25→16:08)
[2023-01-05] MEDS: metroNIDAZOLE 500 MG/100 ML BAG IV SCH ×2 (04:41→11:25)
[2023-01-05] MEDS: LEVOTHYROXINE SODIUM 137 MCG TABLET PO SCH (05:39)
[2023-01-05 07:24] LABS: BUN Creatinine Ratio 10.1 (10-20); Calcium 8.1 mg/dl (8.6-10.3); Creatinine Clr Calc Pharmacy 76.1 ml/min; Est GFR (African American) 96.6 ml/min; Est GFR (Non-African American) 83.4 ml/min; Magnesium 2.1 mg/dl (1.7-2.4); Potassium 4.3 mmol/L (3.5-5.1)
[2023-01-05] MEDS ORDERED: DULoxetine HCL 60 MG CAP PO SCH (09:00)
[2023-01-05] MEDS: MELOXICAM 7.5 MG TAB PO SCH (09:32)
[2023-01-05] MEDS: PANTOprazole 40 MG TAB PO SCH (09:32)
[2023-01-05] MEDS: OXYBUTYNIN CHLORIDE XL 5 MG TABCR PO SCH (09:33)
[2023-01-05 11:02] LABS: Albumin Level 2.2 gm/dl (3.4-5.0); Bilirubin Direct 0.1 mg/dl (0-0.2); Bilirubin,Total 0.2 mg/dl (0.2-1.0); Total Protein 5.8 gm/dl (6.0-8.3)
[2023-01-05] MEDS: ONDANSETRON INJ 2 MG/ML 2 ML VIAL IV PRN (15:20)
--- NOTE | 2023-01-05 17:42 | Discharge Summary ---
Date of Service January 05, 2023 Admission HPI Per Admitting Provider Leora is a 77 year old female w/ PmHx anemia, anxiety, depression, B12 deficiency, fibromyalgia, GERD, HLD, HTN, hypothyroidism, MGUS, urge and stress incontinence coming in to the ED for mid back and abdominal pain as well as shortness of breath on exertion. Patient states that for the past week she's been having worsening mid thoracic pain as well as anterior upper abdominal pain. The pain is almost like a gas pain and doesn't radiate anywhere else. The pain had been worsening over the past 2 days which brought her in. She also says she's been having some slight dizziness when she's standing up and exacerbated with exertion. At time she's had chills but no recorded fevers. She also complains of constipation with not having defecated for about a week. She has had some nausea associated with this and states that she hasn't had the best diet over the past week, hasn't eaten too much and has drank a lot of soda. She denies any vomiting, changes to her muscle pains from fibromyalgia, chest pain, congestion, cough, urinary issues. In the ED WBC 26.07, hgb 12.7, D-dimer 1640, Na 133, Creatinine 0.74, troponin 22.5, lipase 22. CTA negative for PE, positive for interseptal thickening concerning for pulmonary edema, 1.4cm lymph node. CT A&P dilated common bile duct with enhancement of the wall concerning for ascending cholangitis, question striated nephrograms b/l concerning for ATN and/or acute pyelonephritis, marked thickening of descending & sigmoid colon as well as proximal duodenum. Patient was given NSS bolus 500cc, Morphine 4mg x3, ceftriaxone 2g x1 and metronidazole x1. Principal Diagnosis dilated bile duct Discharge Exam Awake alert appropriate. Dyspnea has resolved no carotid bruits Pulm examination is decreased at the bases but otherwise unremarkable. Card exam is regular Abdominal exam shows NABS soft Discharge Data Allergies Allergy/AdvReac Type Severity Reaction Status Date / Time Sulfa (Sulfonamide Allergy Unknown Verified 01/01/23 23:38 Antibiotics) ciprofloxacin [From Cipro] AdvReac Severe interferrs Verified 01/01/23 23:38 with her medications Consultations 01/01/23 22:07 ED Decision to Admit Stat 01/02/23 02:03 Consult Gastroenterology Routine Ordered Studies 01/01/23 19:43 CT abd pelvis IV con only Stat CT angio chest PE protocol Stat 01/03/23 01:03 MR MRCP Routine Hospital Course (1) Dilated bile duct: 77 year old female w/ PmHx anemia, anxiety, depression, B12 deficiency, fibromyalgia, GERD, HLD, HTN, hypothyroidism, MGUS, urge and stress incontinence admitted for sepsis secondary to possible biliary or gastrointestinal source. Dilated Bile Duct: -Treated for cholangitis improving clinically continue ceftriaxone and metronidazole for 1 week - -CT A&P with dilated common bile duct w/ enhancement of wall concerning for asce nding cholangitis. clinically however she was having discomfort in her lower abdomen MRCP did not appreciate significant changes in the common bile duct to corroborate cholangitis. -Consulted GI for the thickening of the sigmoid colon, recommending follow-up with outpatient colonoscopy at time of discharge - CTA of the chest did not show PE but was concern for pulmonary enlarged lymph node which would require also follow-up imaging in the future Dyspnea on exertion: -New dyspnea on exertion for patient. Patient is not previously a smoker improving as patient recovers from initial infection -EKG w/ T wave inversion in V1 and aVR, no ST depression or elevations. -Troponin 22.5 on admission, 25 on recheck suspect demand ischemia and not acs. -Echocardiogram showed preserved ejection fraction no regional wall motion abnormalities no significant valvular abnormalities Hemoglobin is 9.5 this likely will not contribute to her subjective dyspnea at this time Bowel wall thickening: -CT A&P w/ marked thickening of descending & sigmoid colon as well as proximal duodenum. plain film comments on bowel distension and I interpreted right sided stool load -May be gastroenteritis/stercoral colitis and may contribute to patient's presentation pain. continue miralax at discharge. Anxiety/Depression: -continue home duloxetine. Patient also on quetiapine dose 200 at bedtime reduce this dose to 100 to see if this is effects on her dizziness Fibromyalgia: -Continue home duloxetine, meloxicam duloxetine doses little efficacy once greater than 60 because of complaints of dizziness will reduce dose back to 60 HTN/HLD: -Continue home metoprolol, lovastatin. Patient's lipids have been favorable in the past will hold lovastatin at this time GERD: -Continue on PPI. Hypothyroidism: -Continue home levothyroxine. Concern for compression fracture, patient with back pain, Calcitonin was ordered. Imaging negative, but will remain on spray, if No improvement of pain in 1-2 weeks, then this can be discontinued. Total Time Total Time Spent Total Time Spent (In Minutes): 35 Discharge Plan Discharge Items Patient Disposition: Home - Self-Care Reason For Visit: ABD PAIN,SOB ON EXERTION Discharge Diagnosis: Abd. pain Activity: Resume your previous activity Non-emergency contact: Primary Care Provider Call non-emergency contact if: you have any medication questions Follow-up/Referrals: Mitzi Camacho MD [Primary Care Provider] - Diet: Low Fat Addtl Attending Provider Instructions: Recommend followup with Gastroenterology for a colonoscopy. Recommend follow-up with PCP in 1-2 weeks Low fat diet information: -Eat mostly plant foods (such as vegetables, fruits, and whole grains) and a moderate amount of lean and low-fat, animal-based food (meat and dairy products) to help control your fat, cholesterol, carbs, and calories. -When you're shopping, choose fish, poultry, and lean meats. Limit these to 5-7 ounces per day. -Other good low-fat sources of protein include dried beans and peas, tofu, low- fat yogurt, low-fat or skim milk, low-fat cheese, and tuna packed in water. -Choose foods rich in omega-3 fatty acids such as salmon, flaxseed, and walnuts for heart health. The [place] [employer] recommends eating fatty fish such as salmon twice weekly for the benefits of omega-3 fatty acids. 5 Tips for Low-Fat Cooking Trim all visible fat and remove the skin from poultry. Refrigerate soups, gravies, and stews, and remove the hardened fat on top before eating. Bake, broil, or grill meats on a rack that allows fat to drip from the meat. Dont taylor foods. Sprinkle lemon juice, herbs, and spices on cooked vegetables instead of using cheese, butter, or cream-based sauces. Try plain, nonfat or low-fat yogurt and chives on baked potatoes rather than sour cream. Reduced-fat sour cream still has fat, so limit the amount you use. Pending Studies at Discharge: No Stand-Alone Forms: [facility], Smoking Cessation Medications and DC Order Prescriptions: New polyethylene glycol 3350 [Miralax] 17 gram Powder In Packet 17 g PO DAILY PRN (Reason: constipation) Qty: 30 0RF quetiapine [Seroquel XR] 50 mg Tablet Extended Release 24 Hr 100 mg PO HS Qty: 30 0RF amoxicillin-pot clavulanate 875-125 mg tablet 1 tab PO Q8H Qty: 15 0RF calcitonin (salmon) 200 unit/actuation spray,non-aerosol 1 spray intranasal (ALT) DAILY 28 Days Qty: 3.7 0RF Continued duloxetine 60 mg capsule,delayed release(DR/EC) 60 mg PO BID Qty: 180 3RF omeprazole 40 mg capsule,delayed release(DR/EC) 40 mg PO DAILY Qty: 90 3RF dicyclomine 10 mg capsule 10 mg PO DAILY PRN (Reason: abdominal discomfort) Qty: 90 2RF metoprolol succinate 25 mg tablet extended release 24 hr 25 mg PO HS Qty: 90 3RF oxycodone-acetaminophen 7.5-325 mg tablet 1 tab PO TID PRN (Reason: pain) Qty: 90 0RF cyanocobalamin (vitamin B-12) 5,000 mcg Tablet,Disintegrating 5,000 mcg PO DAILY meloxicam 15 mg tablet 15 mg PO DAILY Rx Instructions: TAKE THIS MEDICNE WITH FOOD levothyroxine 137 mcg tablet 137 mcg PO DAILYBB tolterodine 4 mg capsule,extended release 24hr 4 mg PO DAILY multivitamin Tablet 1 tab PO DAILY Hair, Skin and Nails (biotin) 10,000 mcg Tablet,Chewable 10,000 mcg PO DAILY Brainstron Memory Support 120 mg- 110 mg Tablet 1 tab PO DAILY Held lovastatin 20 mg tablet 20 mg PO HS Qty: 90 3RF Hold Instructions: Resume on 01/16/23. until after appointment with PCP Discontinued quetiapine 200 mg tablet extended release 24 hr 200 mg PO DAILY Qty: 90 3RF Discharge Orders: Discharge Order (Routine); Ordered 01/05/23 Ordered By: Sang Márquez Admission Data Admit Date/Time: 01/02/23 00:31 Attending Provider: Sang Márquez Admit Provider: Talon Reynoso Primary Care Provider: Mitzi Camacho Other Providers: Rock Perez ; Gee Arevalo Other Interventions: Discharge Summary Assessment (RN) Last Done: 01/05/23 17:47 Coding Level of Care Code 49222 INP/OBS DISCH >30 MIN Diagnoses Dilated bile duct K83.8
--- NOTE | 2023-01-09 16:32 | Billing Data ---
Date of Service January 09, 2023 Coding Level of Care Code 35361 INT INP/OBS CARE
== END 2023-01-05 18:15 | disposition home or self-care (01) | DRG 872 ==
LOC: ED 18:10 → SUATTDRO 01-02 00:31 → EDINP 01-02 00:31 → 2N 01-02 02:03
DX: E03.9 Hypothyroidism, unspecified; F41.8 Other specified anxiety disorders; D47.2 Monoclonal gammopathy; Z79.890 Hormone replacement therapy; I24.8 Other forms of acute ischemic heart disease; Z88.1 Allergy status to other antibiotic agents; D64.9 Anemia, unspecified; A41.9 Sepsis, unspecified organism; M79.7 Fibromyalgia; N39.46 Mixed incontinence; I10 Essential (primary) hypertension; Z88.2 Allergy status to sulfonamides; K83.09 Other cholangitis; K83.8 Other specified diseases of biliary tract; E78.5 Hyperlipidemia, unspecified